=== PATIENT | female | born 1935 | race Caucasian/White ===

== ENCOUNTER → 2021-10-27 | Outpatient (CLI) | payer MEDICARE | END | disposition home or self-care (01) | LOC: LABWHC1 11:32 | PROVIDERS: ATTEND Orthopaedic Surgery | DX: Z01.812 Encounter for preprocedural laboratory examination (principal); M16.12 Unilateral primary osteoarthritis, left hip; Z22.322 Carrier or suspected carrier of Methicillin resistant Staphylococcus aureus | CPT/HCPCS: 87070 ==

== ENCOUNTER 2021-11-06 11:12 | Observation (INO) | payer MEDICARE ==
[2021-11-02 10:50] VITALS: BMI 25.4
--- NOTE | 2021-11-05 10:43 | HP ---
HISTORY AND PHYSICAL DATE OF SURGERY: 11/06/2021 Fariba Rivas is an 86-year-old patient seen with symptomatic left hip osteoarthritis. We discussed options for treatment. The patient elected to proceed with direct anterior left total hip arthroplasty. Consent regarding the procedure was obtained. Medical clearance was provided by Dr. Orantes. PAST MEDICAL HISTORY: Gastroesophageal reflux disease, hypertension. PAST SURGICAL HISTORY: Uterine surgery. DAILY MEDICATIONS: Gabapentin, lisinopril, omeprazole, rosuvastatin, vitamins. ALLERGIES: PENICILLIN, ADVAIR DISKUS, VIBRAMYCIN. SOCIAL HISTORY: She denies tobacco use. PHYSICAL EVALUATION OF LEFT HIP: She has very limited range of motion with severe pain and diffuse tenderness about the hip girdle. Impingement sign is positive. Straight-leg raise is negative. Her distal neurovascular exam is intact. Radiographs of the left hip revealed severe osteoarthritic changes. IMPRESSION: 1. Left hip osteoarthritis. 2. Hypertension. 3. Hyperlipidemia. PLAN: Direct anterior left total hip arthroplasty. MMODL / IJN: [id number] /
[~2021-11-06 11:12] MED LIST: ACETAMINOPHEN TAB 500 MG TAB PO PRN; MELOXICAM 7.5 MG TAB PO PRN; TRANEXAMIC ACID IN NACL,ISO-OS 1,000 MG in SALINE 1 100ML.BAG IVPB PRN
[2021-11-06] MEDS ORDERED: LIDOCAINE 1% (10MG/ML) FOR IV START INTRADERMA PRN (11:35)
[2021-11-06] MEDS ORDERED: ONDANSETRON 4 MG/2 ML VIAL IVP ONE (11:35)
[2021-11-06] MEDS ORDERED: MIDAZOLAM 2 MG/2 ML VIAL IV PRN (11:35)
[2021-11-06] MEDS: LACTATED RINGERS 1,000 ML IV SCH (11:46)
[2021-11-06] MEDS ORDERED: DEXAMETHASONE SOD PHOSPHATE 4 MG/ML 1 ML VIAL IVP ONE (12:37)
[2021-11-06] MEDS ORDERED: PROPOFOL 10 MG/ML 20 ML VIAL IV ONE (12:39)
[2021-11-06] MEDS ORDERED: TRANEXAMIC ACID IN NACL,ISO-OS 1,000 MG/100 ML BAG ONE (12:39)
[2021-11-06] MEDS ORDERED: fentaNYL (PF) 50 MCG/ML 2 ML AMP ONE (12:39)
[2021-11-06] MEDS ORDERED: ceFAZolin 1,000 MG in SODIUM CHLORIDE 0.9% 1,000 ML IRRIGATION ONE (12:39)
[2021-11-06] MEDS ORDERED: MIDAZOLAM 2 MG/2 ML VIAL ONE (12:39)
[2021-11-06] MEDS ORDERED: PHENYLEPHRINE-0.9% NACL SYG 1,000 MCG/10 ML SYRINGE ONE (12:39)
[2021-11-06] MEDS ORDERED: ePHEDrine 50 MG/ML 1 ML VIAL ONE (12:39)
--- NOTE | 2021-11-06 14:19 | XR ---
EXAMINATION TYPE: XR Hip Limited LT DATE OF EXAM: 11/06/2021 COMPARISON: NONE HISTORY: Postop TECHNIQUE: One view submitted. FINDINGS: There is postsurgical change in near anatomic alignment. There is soft tissue edema and emphysema. IMPRESSION: 1. Postoperative change. Appears in near-anatomic alignment.
--- NOTE | 2021-11-06 14:23 | FL ---
EXAMINATION TYPE: FL guidance operating room DATE OF EXAM: 11/06/2021 HISTORY: Fluoroscopy time 14 seconds of fluoroscopy provided. IMPRESSION: 1. Fluoroscopy time.
[2021-11-06] MEDS ORDERED: NALOXONE 0.4 MG/ML 1 ML VIAL IV PRN (14:24)
[2021-11-06] MEDS ORDERED: HYDROcodone/APAP 5-325MG 1 EACH TAB PO PRN (14:24)
[2021-11-06] MEDS ORDERED: ONDANSETRON 4 MG/2 ML VIAL IVP PRN (14:24)
[2021-11-06] MEDS ORDERED: HYDROmorphone 0.5 MG/0.5 ML SYRINGE IVP PRN ×3 (14:24)
--- NOTE | 2021-11-06 14:24 | P.OP ---
Date of Procedure: 11/06/21 Preoperative Diagnosis: Left hip osteoarthritis Postoperative Diagnosis: Left hip osteoarthritis Procedure(s) Performed: Direct anterior left total hip arthroplasty Implants: 1. Depuy Corail 125 standard collar size 13 press-fit femoral stem 2. Depuy pinnacle 58 mm multilevel press-fit acetabular shell 3. Depuy pinnacle neutral polyethylene acetabular liner 38 mm ID 58 mm OD 4. Biolox delta ceramic femoral head +1.5 36 mm Anesthesia: spinal Surgeon: Kerwin Hightower Heat Treat Operator #1: Shaun Jain Estimated Blood Loss (ml): 85 Pathology: other (Femoral head) Condition: stable Disposition: PACU Indications for Procedure: 86-year-old patient seen with symptomatic left hip osteoarthritis. After treatment options were discussed, she elected to proceed with direct anterior left total hip arthroplasty. Operative Findings: see description of procedure Description of Procedure: The patient was taken to the operative suite. Patient underwent a spinal anesthetic by the department of anesthesia. Patient was then transferred to the [facility] table. Patient was given preoperative IV antibiotics and TXA. Both lower extremities were placed in standard leg spars. The hip was then prepped and draped in the normal sterile orthopedic fashion. A standard anterior incision was made beginning 3 cm lateral and 1 cm distal to the ASIS extending 10 cm. Dissection was then carried down through the subcutaneous soft tissues down to the fascia overlying the tensor fascia emily. An incision was now made through the fascia. Careful dissection was taken down exposing the tensor fascia emily muscle. A Cobra retractor was now placed along the medial femoral neck and a second one along the lateral femoral neck. The venous circumflex vessels were now identified, cauterized and clipped. We identified the anterior hip capsule. An incision was made through the hip capsule along the lateral border. I performed a partial anterior capsulectomy. Retractors were now placed around the femoral neck itself. A femoral neck cut was now made with a sagittal saw. It was completed with an osteotome at the lateral neck area. The femoral head was now removed without difficulty. The extremity was now rotated to 60 of external rotation. It was locked in position. Residual labrum was now debrided out. Serial reaming was performed of the acetabulum while Aaron SULLIVAN assisted holding an anterior retractor for exposure. Once we reached the appropriate size and a trial was position and fit nicely. The appropriate size was now chosen opened and made available. It was introduced into the acetabulum without difficulty. The C-arm/fluoroscopy was now brought into the operative field. We made sure we had a true AP pelvic view. We now under direct C-arm/fluoroscopy introduced into the acetabular component with appropriate version and inclination. I held the cup in appropriate position well Aaron SULLIVAN used a mallet to seat the acetabular component. I noted the component now to be well seated and stable. Acetabular cup introduce her was removed. The C-arm was pulled back. An appropriate liner was introduced and clicked into position. It was felt to be stable. At this point retractors were removed. The extremity was now placed into 140 external rotation with no traction. The leg was now dropped to the ground and adducted. Appropriate retractors were now positioned along the proximal femur. We also placed our femoral look into position. Additional capsular releasing was performed to gain access to the proximal femur. We now used a box osteotome. A canal finder was now utilized. Serial broaching was now performed with the assistance of Aaron SULLIVAN tapping the broaches down with a mallet while held the broach in appropriate rotation and position. This was done until we reached the appropriate size with good overall rotational stability. Appropriate calcar planing was performed. A trial head/neck was placed into position. The hip was now reduced. The C- arm/fluoroscopy was brought back into the operative field. I obtained AP pelvis demonstrating adequate leg length alignment. The trial components appeared appropriately sized and positioned. The C-arm/fluoroscopy was pulled back. Retractors were repositioned and the hip was dislocated. The leg was again taken down to the ground and adducted. Appropriate retractors were repositioned as well as the femoral hook. All trial components were removed. The femoral implant was opened along with the femoral head. The femoral implant was introduced on the appropriate handle into our pre-broached area. I held the component position well Aaron SULLIVAN used a mallet to seat the femoral component. The femoral component was now noted to be well seated and stable.. The femoral head was introduced with good positioning and fixation noted. Retractors were now removed. The hip was now reduced. There appeared be good positioning of the hip confirmed on intraoperative fluoroscopy. Spot films were obtained to document this. A second gram of TXA was given. The deep and superficial soft tissues were infiltrated with local analgesic. Bipolar cautery had been utilized intermittently through the procedure for hemostasis. The wound was irrigated copiously with pulse lavage mechanical irrigation. The fascia was repaired with Vicryl suture. The subcutaneous soft tissues were repaired in layers with Vicryl suture. The skin was approximated with pernio/Dermabond. Sterile dressings were applied. Patient was then awakened, transferred to a bed and taken to recovery in stable condition. Aaron SULLIVAN assisted with the complex procedure.
[2021-11-06] MEDS ORDERED: LACTATED RINGERS 1,000 ML IV ONE (14:37)
[2021-11-06] MEDS ORDERED: MEPERIDINE 50 MG/ML SYRINGE IVP ONE ×4 (15:10→15:41)
[2021-11-06] MEDS: HYDROmorphone 0.5 MG/0.5 ML SYRINGE IVP PRN ×2 (16:09→16:21)
[2021-11-06] MEDS: SENNOSIDES-DOCUSATE SODIUM 1 EACH TAB PO SCH (22:00)
[2021-11-06] MEDS: HYDROcodone/APAP 5-325MG 1 EACH TAB PO PRN (22:00)
--- NOTE | 2021-11-06 23:32 | P.CONS ---
History of Present Illness - Reason for Consult Consult date: 11/06/21 - History of Present Illness The patient is an 86-year-old female with a PMH of hypertension and hyperlipidemia who was admitted to the hospital for an elective left hip arthroplasty. The patient was seen postoperatively on the surgical unit. There were no reported immediate postoperative complications. The patient reported excellent control of her pain at the time of interview, rated at a 0 out of 10 at rest. Denied experiencing chest discomfort, shortness of breath, fever, chills, cough, nausea, vomiting, abdominal pain, diarrhea. She reports compliance with all her medications at home. She was in good spirits and was eager to get up out of bed and move on to therapy. Review of systems: Pertinent positives and negatives as discussed in HPI, a complete review of systems was performed and all other systems are negative. Physical examination: General: non toxic, no distress, appears at stated age, normal weight Derm: no unusual rashes/lesions no unusual ecchymoses, warm, dry Head: atraumatic, normocephalic, symmetric Eyes: EOMI, no lid lag, anicteric sclera, pupils equal round reactive to light ENT: Nose and ears atraumatic, no thrush, no pharyngeal erythema Neck: No thyromegaly, no cervical lymphadenopathy, trachea midline, supple Mouth: no lip lesion, mucus membranes moist Cardiovascular: S1S2 reg, no murmur, positive posterior tibial pulse bilateral, no edema, capillary refill less than 2 seconds Lungs: CTA bilateral, no rhonchi, no rales , no accessory muscle use Abdominal: soft, nontender to palpation, no guarding, no appreciable organomegaly, normal bowel sounds Ext: no gross muscle atrophy, muscle strength 5 out of 5 in all extremities grossly except left lower extremity postsurgical, left anterior hip dressing clean and dry without surrounding skin abnormalities no contractures, Neuro: CN II-XI grossly intact, light touch intact all 4 extremities, finger to nose within normal limits, Psych: Alert, oriented, appropriate affect Assessment/plan Chronic conditions: Hypertension, hyperlipidemia -Continue with home meds Status post left total hip arthroplasty -Defer management including pain control and DVT prophylaxis to the primary surgical service We appreciate this opportunity to be involved in this patient's care. We will follow the patient with you. For any further questions, please not hesitate to contact the [facility] emergency department inpatient team. Past Medical History Past Medical History: Asthma, Cancer, GERD/Reflux, Osteoarthritis (OA) Additional Past Medical History / Comment(s): SOB with excertion, skin cancer upper lip and check History of Any Multi-Drug Resistant Organisms: None Reported Additional Past Surgical History / Comment(s): surgery for prolapsed uterus Past Anesthesia/Blood Transfusion Reactions: No Reported Reaction Smoking Status: Never smoker - Past Family History Son(s) Family Medical History: Cancer Medications and Allergies Home Medications Medication Instructions Recorded Confirmed Type Acetaminophen Tab [Tylenol] 650 mg PO Q6H PRN 11/02/21 11/02/21 History Biotene Mouth Wash 5 ml PO DAILY PRN 11/02/21 11/06/21 History Calcium Carbonate [Tums] 500 mg PO Q6HR PRN 11/02/21 11/06/21 History Cholecalciferol [Vitamin D3 (25 50 mcg PO DAILY 11/02/21 11/06/21 History Mcg = 1000 Iu)] Cyanocobalamin (Vitamin B-12) 1,000 mcg PO DAILY 11/02/21 11/06/21 History [Vitamin B-12] DULoxetine HCL [Cymbalta] 60 mg PO DAILY 11/02/21 11/06/21 History Diltiazem HCl [Diltiazem HCl 24Hr 240 mg PO DAILY 11/02/21 11/06/21 History ER] Estradiol Cream [Estrace Cream 1 gm VAGINAL WESA 11/02/21 11/06/21 History 0.01%] Gabapentin [Neurontin] 100 mg PO HS 11/02/21 11/06/21 History HYDROcodone/APAP 5-325MG [[place] 1 tab PO Q6HR PRN 11/02/21 11/06/21 History 5-325] Melatonin 3 mg PO HS 11/02/21 11/06/21 History Omeprazole [PriLOSEC] 20 mg PO HS 11/02/21 11/06/21 History Rosuvastatin Calcium [Crestor] 5 mg PO HS 11/02/21 11/06/21 History Vit C/E/Zn/Coppr/Lutein/Zeaxan 1 each PO DAILY 11/02/21 11/06/21 History [Preservision Areds 2 Softgel] lisinopriL 40 mg PO DAILY 11/02/21 11/06/21 History Allergies Allergy/AdvReac Type Severity Reaction Status Date / Time doxycycline [From Vibramycin] Allergy Unknown Verified 11/06/21 11:37 fluticasone Allergy Unknown Verified 11/06/21 11:37 Penicillins Allergy Unknown Verified 11/06/21 11:37 salmeterol Allergy Unknown Verified 11/06/21 11:37 [From Advair Diskus] Physical Exam Vitals: Vital Signs Temp Pulse Resp BP Pulse Ox 11/06/21 20:00 98.4 F 76 18 102/62 94 L 11/06/21 18:45 80 16 119/56 93 L 11/06/21 17:40 73 16 127/69 93 L 11/06/21 17:11 76 16 126/82 94 L 11/06/21 16:40 72 12 135/64 95 11/06/21 16:25 82 16 141/65 97 11/06/21 16:10 91 18 158/74 98 11/06/21 15:55 72 14 153/68 99 11/06/21 15:40 73 14 156/66 98 11/06/21 15:24 72 16 154/59 99 11/06/21 15:09 86 18 158/70 95 11/06/21 14:54 77 14 143/55 93 L 11/06/21 14:39 97 F L 68 16 155/66 95 11/06/21 12:05 177/83 11/06/21 12:01 98.6 F 88 18 189/77 94 L Intake and Output 11/06/21 11/06/21 11/06/21 06:59 14:59 22:59 Intake Total 1051 800 Output Total 85 Balance 966 800 Intake: IV 1051 800 Output: Estimated Blood Loss 85 Other: Weight 66.6 kg
[2021-11-07] MEDS: SODIUM CHLORIDE 0.9% 1,000 ML IV SCH ×2 (00:52→11:48)
[2021-11-07] MEDS ORDERED: HYDROcodone/APAP 5-325MG 1 EACH TAB PO PRN (03:51)
[2021-11-07] MEDS: HYDROcodone/APAP 5-325MG 1 EACH TAB PO PRN ×2 (05:32→14:12)
[2021-11-07 09:09] LABS: African American GFR (CKD) 59 (>60 ml/min/1.73 sqM); Anion Gap 12 mmol/L; Blood Urea Nitrogen 28 mg/dL (7-17); Calcium 8.4 mg/dL (8.4-10.2); Carbon Dioxide 20 mmol/L (22-30); Chloride 105 mmol/L (98-107); Glucose 148 mg/dL (74-99); Non-African American GFR(CKD) 51 (>60 ml/min/1.73 sqM); Potassium 4.4 mmol/L (3.5-5.1); Sodium 137 mmol/L (137-145)
[2021-11-07 09:11] LABS: Basophils # (A) 0.01 X 10*3/uL (0.00-0.10); Basophils % (A) 0.1 %; Eosinophils # (A) 0 X 10*3/uL (0.04-0.35); Eosinophils % (A) 0 %; HGB 9.3 g/dL (12.0-15.0); Immature Grans, Automated 0.4 %; Lymphocytes # (A) 0.64 X 10*3/uL (0.90-5.00); Lymphocytes % (A) 6.1 %; MCH 30.6 pg (27.0-32.0); MCV 98.7 fL (80.0-97.0); Mean Platelet Volume 11.1 fL (9.5-12.2); Monocytes # (A) 1.01 X 10*3/uL (0.20-1.00); Monocytes % (A) 9.7 %; NRBC Per 100 WBC 0 /100 WBCS (0.0-0.0); Neutrophils # (A) 8.75 X 10*3/uL (1.80-7.70); Neutrophils % (A) 83.7 %; Platelet Count 179 X 10*3/uL (140-440); RBC 3.04 X 10*6/uL (4.10-5.20); RDW 12.6 % (11.5-14.5); WBC 10.45 X 10*3/uL (4.50-10.00)
[2021-11-07] MEDS: ENOXAPARIN 40 MG/0.4 ML SYRINGE SQ SCH (10:35)
[2021-11-07] MEDS: DULoxetine HCL 60 MG CAPSULE.DR PO SCH (10:35)
[2021-11-07] MEDS: lisinopriL 20 MG TAB PO SCH (10:35)
[2021-11-07] MEDS: FAMOTIDINE 20 MG TAB PO SCH (10:35)
[2021-11-07] MEDS: DILTIAZEM CD 240 MG CAP.ER.24H PO SCH (10:45)
--- NOTE | 2021-11-07 10:45 | P.PN ---
Subjective Progress Note Date: 11/07/21 Principal diagnosis: Status post direct anterior left total hip arthroplasty Patient evaluated at bedside, she is resting comfortably. She has ambulated well with physical therapy. She's having some generalized discomfort in the left lower extremity. She currently denies any headaches, lightheadedness, chest pain or shortness of breath. Objective - Vital Signs Vital signs: Vital Signs Temp 98.7 F 11/07/21 07:55 Pulse 82 11/07/21 07:55 Resp 20 11/07/21 07:55 BP 126/68 11/07/21 07:55 Pulse Ox 94 L 11/07/21 07:55 Intake & Output 11/06/21 11/07/21 11/07/21 18:59 06:59 18:59 Intake Total 1851 Output Total 85 Balance 1766 Weight 66.6 kg 66.6 kg Intake: IV 1851 Output: Estimated Blood Loss 85 Other: # Voids 1 - Exam Left lower extremity: Incision is clean, dry, and intact. The foam dressing is in good condition. There is minimal soft tissue swelling and ecchymosis surrounding the medial and lateral aspects of the incision. Calf is soft, no tenderness with palpation. Plantar flexion, dorsiflexion, EHL, FHL are intact. Sensory exam to light touch throughout the extremity is intact, dorsal pedis pulses 2+. - Labs CBC & Chem 7: 11/07/21 06:07 11/07/21 06:07 Labs: Abnormal Lab Results - Last 24 Hours (Table) 11/07/21 11/07/21 Range/Units 06:07 06:07 WBC 10.45 H (4.50-10.00) X 10*3/uL RBC 3.04 L (4.10-5.20) X 10*6/uL Hgb 9.3 L (12.0-15.0) g/dL Hct 30.0 L (37.2-46.3) % MCV 98.7 H (80.0-97.0) fL MCHC 31.0 L (32.0-37.0) g/dL Neutrophils # 8.75 H (1.80-7.70) X 10*3/uL Lymphocytes # 0.64 L (0.90-5.00) X 10*3/uL Monocytes # 1.01 H (0.20-1.00) X 10*3/uL Eosinophils # 0 L (0.04-0.35) X 10*3/uL Carbon Dioxide 20 L (22-30) mmol/L BUN 28 H (7-17) mg/dL Glucose 148 H (74-99) mg/dL Assessment and Plan Assessment: Postoperartive day #1 s/p direct anterior left total hip replacement Plan: Pain control, plan for discharge on [place] 5 mg/325 mg DVT prophylaxis, aspirin 81 mg twice a day for a month Wound care structures were discussed, this includes showering and icing and elevating Patient lives at a F, plan for daily therapy Medical recommendations Discharge planning: Hopeful discharge today Time with Patient: Less than 30
[2021-11-07] MEDS: LACTATED RINGERS 1,000 ML IV SCH (11:52)
--- NOTE | 2021-11-07 14:41 | P.PN ---
Subjective Progress Note Date: 11/07/21 Principal diagnosis: HIP PAIN The patient is an 86-year-old female with a PMH of hypertension and hyperlipidemia who was admitted to the hospital for an elective left hip arthroplasty. Patient is currently postop day #1 from this procedure without any significant complications. She denies any nausea vomiting fever or chills Objective - Vital Signs Vital signs: Vital Signs Temp 98.7 F 11/07/21 07:55 Pulse 82 11/07/21 07:55 Resp 20 11/07/21 07:55 BP 126/68 11/07/21 07:55 Pulse Ox 94 L 11/07/21 07:55 Intake & Output 11/06/21 11/07/21 11/07/21 18:59 06:59 18:59 Intake Total 1851 Output Total 85 Balance 1766 Weight 66.6 kg 66.6 kg Intake: IV 1851 Output: Estimated Blood Loss 85 Other: Voiding Method Toilet # Voids 1 - Exam General: non toxic, no distress, appears at stated age, normal weight Derm: no unusual rashes/lesions no unusual ecchymoses, warm, dry Head: atraumatic, normocephalic, symmetric Eyes: EOMI, no lid lag, anicteric sclera, pupils equal round reactive to light ENT: Nose and ears atraumatic, no thrush, no pharyngeal erythema Neck: No thyromegaly, no cervical lymphadenopathy, trachea midline, supple Mouth: no lip lesion, mucus membranes moist Cardiovascular: S1S2 reg, no murmur, positive posterior tibial pulse bilateral, no edema, capillary refill less than 2 seconds Lungs: CTA bilateral, no rhonchi, no rales , no accessory muscle use Abdominal: soft, nontender to palpation, no guarding, no appreciable organomegaly, normal bowel sounds Ext: no gross muscle atrophy, muscle strength 5 out of 5 in all extremities grossly except left lower extremity postsurgical, left anterior hip dressing clean and dry without surrounding skin abnormalities no contractures, Neuro: CN II-XI grossly intact, light touch intact all 4 extremities, finger to nose within normal limits, Psych: Alert, oriented, appropriate affect - Labs CBC & Chem 7: 11/07/21 06:07 11/07/21 06:07 Labs: Abnormal Lab Results - Last 24 Hours (Table) 11/07/21 11/07/21 Range/Units 06:07 06:07 WBC 10.45 H (4.50-10.00) X 10*3/uL RBC 3.04 L (4.10-5.20) X 10*6/uL Hgb 9.3 L (12.0-15.0) g/dL Hct 30.0 L (37.2-46.3) % MCV 98.7 H (80.0-97.0) fL MCHC 31.0 L (32.0-37.0) g/dL Neutrophils # 8.75 H (1.80-7.70) X 10*3/uL Lymphocytes # 0.64 L (0.90-5.00) X 10*3/uL Monocytes # 1.01 H (0.20-1.00) X 10*3/uL Eosinophils # 0 L (0.04-0.35) X 10*3/uL Carbon Dioxide 20 L (22-30) mmol/L BUN 28 H (7-17) mg/dL Glucose 148 H (74-99) mg/dL Assessment and Plan Assessment: Hypertension Blood pressure is currently stable on current medications of diltiazem, lisinopril Dyslipidemia Continue with atorvastatin Left hip pain Patient is postop day #1 from a left hip arthroplasty procedure. Without any complications -Chek postop day #1 labs -Continue with pain control -Continue with DVT prophylaxis
[2021-11-07] MEDS: GABAPENTIN 100 MG CAP PO SCH (20:15)
[2021-11-07] MEDS: ATORVASTATIN 10 MG TAB PO SCH (20:16)
[2021-11-07] MEDS: SENNOSIDES-DOCUSATE SODIUM 1 EACH TAB PO SCH (20:16)
--- NOTE | 2021-11-07 20:51 | XR ---
EXAMINATION TYPE: XR Hip Complete LT DATE OF EXAM: 11/07/2021 COMPARISON: NONE HISTORY: Postop TECHNIQUE: 2 views FINDINGS: There is left hip prosthesis. Components appear in anatomic position. IMPRESSION: No complicating process seen.
[2021-11-08] MEDS: lisinopriL 20 MG TAB PO SCH (07:18)
[2021-11-08] MEDS: FAMOTIDINE 20 MG TAB PO SCH (07:18)
[2021-11-08] MEDS: ENOXAPARIN 40 MG/0.4 ML SYRINGE SQ SCH (07:19)
[2021-11-08] MEDS: DILTIAZEM CD 240 MG CAP.ER.24H PO SCH (07:19)
[2021-11-08] MEDS: DULoxetine HCL 60 MG CAPSULE.DR PO SCH (07:19)
[2021-11-08] MEDS: LACTATED RINGERS 1,000 ML IV SCH (07:24)
[2021-11-08] MEDS: HYDROcodone/APAP 5-325MG 1 EACH TAB PO PRN ×2 (07:30→15:06)
[2021-11-08] MEDS: SODIUM CHLORIDE 0.9% 1,000 ML IV SCH (07:31)
--- NOTE | 2021-11-08 09:02 | P.PN ---
Subjective Progress Note Date: 11/08/21 Principal diagnosis: Status post direct anterior left total hip arthroplasty Patient evaluated at bedside, she is resting comfortably. We are waiting on authorization for the patient to be discharged back to her extended care facility for rehab. She has continued to progress with physical therapy. I was able to observe the patient ambulating today in the halls, she definitely would benefit from rehab to improve her ADLs. She currently denies any headaches, lightheadedness, chest pain or shortness of breath. Objective - Vital Signs Vital signs: Vital Signs Temp 98.8 F 11/08/21 08:00 Pulse 75 11/08/21 08:00 Resp 18 11/08/21 08:25 BP 120/64 11/08/21 08:00 Pulse Ox 94 L 11/08/21 08:00 Intake & Output 11/07/21 11/08/21 11/08/21 18:59 06:59 18:59 Intake Total 1160 100 Balance 1160 100 Intake: Oral 1160 100 Other: Voiding Method Toilet Toilet # Voids 3 4 # Bowel Movements 1 1 - Exam Left lower extremity: Incision is clean, dry, and intact. The foam dressing is in good condition. There is minimal soft tissue swelling and ecchymosis surrounding the medial and lateral aspects of the incision. Calf is soft, no tenderness with palpation. Plantar flexion, dorsiflexion, EHL, FHL are intact. Sensory exam to light touch throughout the extremity is intact, dorsal pedis pulses 2+. - Labs CBC & Chem 7: 11/07/21 06:07 11/07/21 06:07 Labs: Abnormal Lab Results - Last 24 Hours (Table) 11/07/21 11/07/21 Range/Units 06:07 06:07 WBC 10.45 H (4.50-10.00) X 10*3/uL RBC 3.04 L (4.10-5.20) X 10*6/uL Hgb 9.3 L (12.0-15.0) g/dL Hct 30.0 L (37.2-46.3) % MCV 98.7 H (80.0-97.0) fL MCHC 31.0 L (32.0-37.0) g/dL Neutrophils # 8.75 H (1.80-7.70) X 10*3/uL Lymphocytes # 0.64 L (0.90-5.00) X 10*3/uL Monocytes # 1.01 H (0.20-1.00) X 10*3/uL Eosinophils # 0 L (0.04-0.35) X 10*3/uL Carbon Dioxide 20 L (22-30) mmol/L BUN 28 H (7-17) mg/dL Glucose 148 H (74-99) mg/dL Assessment and Plan Assessment: Postoperartive day #2 s/p direct anterior left total hip replacement Plan: Pain control, plan for discharge on [place] 5 mg/325 mg DVT prophylaxis, aspirin 81 mg twice a day for a month Wound care structures were discussed, this includes showering and icing and elevating Medical recommendations Discharge planning: Stable to discharge, awaiting authorization from rehab Time with Patient: Less than 30
--- NOTE | 2021-11-08 12:39 | P.PN ---
Subjective Progress Note Date: 11/08/21 Principal diagnosis: HIP PAIN The patient is an 86-year-old female with a PMH of hypertension and hyperlipidemia who was admitted to the hospital for an elective left hip arthroplasty. Patient is currently postop day #2 from this procedure without any significant complications. She denies any nausea vomiting fever or chills Patient is doing well with pain denies any new complaints at this time. She is awaiting insurance authorization for rehab. She is stable for discharge Objective - Vital Signs Vital signs: Vital Signs Temp 98.8 F 11/08/21 08:00 Pulse 75 11/08/21 08:00 Resp 18 11/08/21 08:25 BP 120/64 11/08/21 08:00 Pulse Ox 94 L 11/08/21 08:00 Intake & Output 11/07/21 11/08/21 11/08/21 18:59 06:59 18:59 Intake Total 1160 100 Balance 1160 100 Intake: Oral 1160 100 Other: Voiding Method Toilet Toilet # Voids 3 4 # Bowel Movements 1 1 - Exam General: non toxic, no distress, appears at stated age, normal weight Derm: no unusual rashes/lesions no unusual ecchymoses, warm, dry Head: atraumatic, normocephalic, symmetric Eyes: EOMI, no lid lag, anicteric sclera, pupils equal round reactive to light ENT: Nose and ears atraumatic, no thrush, no pharyngeal erythema Neck: No thyromegaly, no cervical lymphadenopathy, trachea midline, supple Mouth: no lip lesion, mucus membranes moist Cardiovascular: S1S2 reg, no murmur, positive posterior tibial pulse bilateral, no edema, capillary refill less than 2 seconds Lungs: CTA bilateral, no rhonchi, no rales , no accessory muscle use Abdominal: soft, nontender to palpation, no guarding, no appreciable organomegaly, normal bowel sounds Ext: no gross muscle atrophy, muscle strength 5 out of 5 in all extremities grossly except left lower extremity postsurgical, left anterior hip dressing clean and dry without surrounding skin abnormalities no contractures, Neuro: CN II-XI grossly intact, light touch intact all 4 extremities, finger to nose within normal limits, Psych: Alert, oriented, appropriate affect - Labs CBC & Chem 7: 11/07/21 06:07 11/07/21 06:07 Assessment and Plan Assessment: Hypertension Blood pressure is currently stable on current medications of diltiazem, lisinopril Dyslipidemia Continue with atorvastatin Left hip pain Patient is postop day #2 from a left hip arthroplasty procedure. Without any complications -Continue with pain control -Continue with DVT prophylaxis Disposition: Patient is awaiting insurance authorization for rehab. Patient is stable for discharge
--- NOTE | 2021-11-08 14:26 | P.DS ---
Providers Date of admission: 11/07/21 07:35 Expected date of discharge: 11/08/21 Attending physician: Kerwin Hightower Consults: 11/06/21 14:24 Consult Physician Routine Consulting Provider: Cory Floyd Consult Reason/Comments: Medical management Do you want consulting provider notified?: Yes Primary care physician: Stated None Hospital Course: Date of admission: 11/06/2021 Date of discharge: 11/08/2021 Admission diagnosis: Status post direct anterior left total hip arthroplasty Discharge diagnosis: Same Attending physician: Dr. Hightower Surgical procedures: Direct anterior left total hip arthroplasty Brief history: Patient is a 86-year-old female with a history of progressive primary left hip osteoarthritis. At this point patient has failed conservative treatment measures and has opted to proceed with a elective direct anterior left total hip arthroplasty. Hospital course: Details of patient's surgery can be found in operative report. Patient tolerated the procedure well and was subsequently transported to orthopedic floor. Patient's orthopeidc and medical care was provided daily. Patient had daily laboratory tests performed for evaluation of overall blood counts. Patient had daily physical therapy to include strengthening range of motion as well as education with walker ambulation. Patient was treated with Lovenox for their postoperative DVT prophylaxis during their inpatient stay. Patient was noted to have a relatively uneventful postoperative course. Patient reported satisfactory pain control with oral pain medications by postoperative day 0. Patient showed satisfactory progress with physical therapy. Patient moved steadily through the program and had no difficulty meeting the goals by postoperative day 1. Given patient's otherwise satisfactory course and having met physical therapy goals, plan is to discharge patient home on postoperative day 2. Discharge condition/disposition: Patient will be discharged home in stable condition. Discharge medications: Instructions are given on resumption of patient's normal daily medications per primary care recommendation, in addition patient will be prescribed [place] 5 mg/325 mg, Colace 100 mg, ferrous sulfate 325 mg, aspirin 81 mg. Discharge instructions: 1. Wound care and infection precautions, keep incision dry and covered while showering, no lotions, creams, moisturizers. No soaking, tubs, pools, hottubs. Do not scrub over the incision. 2. Weight-bear as tolerated with walker / cane until follow-up. 3. Ice and elevate when necessary. Do not exceed 20 minutes per hour with ice pack. 4. Utilize compression sleeve until seen at first follow up appointment. 5. Visiting nursing care. 6. Home physical therapy. 7. Pain meds and anticoagulants per prescription. 8. Pain medication has potential to cause constipation. Increase oral fluid and fiber intake. Contact primary care provider if you have not had a bowel movement within 48 hours after discharge 9. No anti-inflammatory medication until discussed at first post operative visit, this including Motrin, Aleve, Mobic, Diclofenac. 10. Follow up in office at 2 weeks postop with Aaron Jain PA-C/Ag Aguilar 11. Follow up with your primary care doctor 7-10 days after discharge. 12. Contact [facility] with any questions, . Procedures: Direct anterior left total hip arthroplasty Patient Condition at Discharge: Good Plan - Discharge Summary Discharge Rx Participant: No New Discharge Prescriptions: New Ferrous Sulfate [Iron (65 MG Elemental)] 325 mg PO BID #60 tab HYDROcodone/APAP 5-325MG [[place] 5-325] 1 tab PO Q6HR PRN #28 tab PRN Reason: Pain Aspirin [Adult Low Dose Aspirin EC] 81 mg PO BID #60 tab Docusate [Colace] 100 mg PO DAILY #30 capsule Gabapentin [Neurontin] 100 mg PO DAILY 3 Days #6 cap No Action Calcium Carbonate [Tums] 500 mg PO Q6HR PRN PRN Reason: Heartburn lisinopriL 40 mg PO DAILY Melatonin 3 mg PO HS Estradiol Cream [Estrace Cream 0.01%] 1 gm VAGINAL WESA Biotene Mouth Wash 5 ml PO DAILY PRN PRN Reason: Dry Mouth Acetaminophen Tab [Tylenol] 650 mg PO Q6H PRN PRN Reason: Pain HYDROcodone/APAP 5-325MG [[place] 5-325] 1 tab PO Q6HR PRN PRN Reason: Pain Cholecalciferol [Vitamin D3 (25 Mcg = 1000 Iu)] 50 mcg PO DAILY Rosuvastatin Calcium [Crestor] 5 mg PO HS Cyanocobalamin (Vitamin B-12) [Vitamin B-12] 1,000 mcg PO DAILY Vit C/E/Zn/Coppr/Lutein/Zeaxan [Preservision Areds 2 Softgel] 1 each PO DAILY Omeprazole [PriLOSEC] 20 mg PO HS Gabapentin [Neurontin] 100 mg PO HS DULoxetine HCL [Cymbalta] 60 mg PO DAILY Diltiazem HCl [Diltiazem HCl 24Hr ER] 240 mg PO DAILY Discharge Medication List Acetaminophen Tab [Tylenol] 650 mg PO Q6H PRN 11/02/21 [History] Biotene Mouth Wash 5 ml PO DAILY PRN 11/02/21 [History] Calcium Carbonate [Tums] 500 mg PO Q6HR PRN 11/02/21 [History] Cholecalciferol [Vitamin D3 (25 Mcg = 1000 Iu)] 50 mcg PO DAILY 11/02/21 [History] Cyanocobalamin (Vitamin B-12) [Vitamin B-12] 1,000 mcg PO DAILY 11/02/21 [History] DULoxetine HCL [Cymbalta] 60 mg PO DAILY 11/02/21 [History] Diltiazem HCl [Diltiazem HCl 24Hr ER] 240 mg PO DAILY 11/02/21 [History] Estradiol Cream [Estrace Cream 0.01%] 1 gm VAGINAL WESA 11/02/21 [History] Gabapentin [Neurontin] 100 mg PO HS 11/02/21 [History] HYDROcodone/APAP 5-325MG [[place] 5-325] 1 tab PO Q6HR PRN 11/02/21 [History] Melatonin 3 mg PO HS 11/02/21 [History] Omeprazole [PriLOSEC] 20 mg PO HS 11/02/21 [History] Rosuvastatin Calcium [Crestor] 5 mg PO HS 11/02/21 [History] Vit C/E/Zn/Coppr/Lutein/Zeaxan [Preservision Areds 2 Softgel] 1 each PO DAILY 11/02/21 [History] lisinopriL 40 mg PO DAILY 11/02/21 [History] Aspirin [Adult Low Dose Aspirin EC] 81 mg PO BID #60 tab 11/07/21 [Rx] Docusate [Colace] 100 mg PO DAILY #30 capsule 11/07/21 [Rx] Ferrous Sulfate [Iron (65 MG Elemental)] 325 mg PO BID #60 tab 11/07/21 [Rx] Gabapentin [Neurontin] 100 mg PO DAILY 3 Days #6 cap 11/07/21 [Rx] HYDROcodone/APAP 5-325MG [[place] 5-325] 1 tab PO Q6HR PRN #28 tab 11/07/21 [Rx] Follow up Appointment(s)/Referral(s): Shaun Jain PAC [PHYSICIAN [employer]] - 2 Weeks Activity/Diet/Wound Care/Special Instructions: Home Care: [facility] - [phone] - They will call patient to arrange home care visits. Orthopedic Discharge Instructions: 1. Wound care and infection precautions, keep incision dry and covered while showering, no lotions, creams, moisturizers. No soaking, pools, hot tubs. Do not scrub over incision. 2. Weight-bear as tolerated with walker / cane until follow-up. 3. Ice and elevate when necessary. Do not exceed 20 minutes per hour with ice pack. 4. Utilize compression sleeve until seen at first follow up appointment. 5. Pain meds and anticoagulants per prescription. 6. Pain medication has potential to cause constipation. Increase oral fluid and fiber intake. Contact primary care provider if you have not had a bowel movement within 48 hours after discharge. 7. No anti-inflammatory medication until discussed at first post operative visit, this including Motrin, Aleve, Mobic, Diclofenac. 8. Follow up in office at 2 weeks postop with Aaron Jain PA-C/Ag Dash PA-C 9. Follow up with your primary care doctor 7-10 days after discharge. 10. Contact [facility] with any questions, . Wound care instructions: 1. Okay to remove bandage on 11/13/2021 2. After removal of bandage, okay to shower directly over incision Discharge Disposition: HOME WITH HOME HEALTH SERVICES
[2021-11-08] MEDS: GABAPENTIN 100 MG CAP PO SCH (20:24)
[2021-11-08] MEDS: ATORVASTATIN 10 MG TAB PO SCH (20:24)
[2021-11-08] MEDS: SENNOSIDES-DOCUSATE SODIUM 1 EACH TAB PO SCH (20:24)
[2021-11-09] MEDS: SODIUM CHLORIDE 0.9% 1,000 ML IV SCH (02:17)
[2021-11-09] MEDS: HYDROcodone/APAP 5-325MG 1 EACH TAB PO PRN ×2 (02:19→07:19)
[2021-11-09] MEDS: lisinopriL 20 MG TAB PO SCH (07:15)
[2021-11-09] MEDS: FAMOTIDINE 20 MG TAB PO SCH (07:16)
[2021-11-09] MEDS: DILTIAZEM CD 240 MG CAP.ER.24H PO SCH (07:16)
[2021-11-09] MEDS: DULoxetine HCL 60 MG CAPSULE.DR PO SCH (07:16)
[2021-11-09] MEDS: ENOXAPARIN 40 MG/0.4 ML SYRINGE SQ SCH (07:16)
[2021-11-09] MEDS: LACTATED RINGERS 1,000 ML IV SCH (07:16)
[2021-11-09 07:44] VITALS: BP 112/73; PULSE 74; TEMP 97.8
[2021-11-09 09:02] VITALS: RESP 20
[2021-11-09 09:24] LABS: Basophils # (A) 0.1 k/uL (0-0.2); Basophils % (A) 1 %; Eosinophils # (A) 0.1 k/uL (0-0.7); Eosinophils % (A) 2 %; HCT 30.2 % (34.0-46.0); HGB 9.6 gm/dL (11.4-16.0); Lymphocytes # (A) 1.3 k/uL (1.0-4.8); Lymphocytes % (A) 19 %; MCH 32.2 pg (25.0-35.0); MCHC 31.8 g/dL (31.0-37.0); MCV 101.5 fL (80.0-100.0); Mean Platelet Volume 8.6; Monocytes # (A) 0.5 k/uL (0-1.0); Monocytes % (A) 7 %; Neutrophils % (A) 70 %; Platelet Count 176 k/uL (150-450); RBC 2.97 m/uL (3.80-5.40); RDW 12.5 % (11.5-15.5); WBC 7.2 k/uL (3.8-10.6)
== END 2021-11-09 11:00 | disposition home health service (06) ==
LOC: OR 11:12 → 4SSUR 14:11 → OR 11-07 07:35
PROVIDERS: ADMIT Orthopaedic Surgery; ATTEND Orthopaedic Surgery
DX: M16.12 Unilateral primary osteoarthritis, left hip (principal); K21.9 Gastro-esophageal reflux disease without esophagitis; I10 Essential (primary) hypertension; E78.5 Hyperlipidemia, unspecified; Z98.890 Other specified postprocedural states; Z79.899 Other long term (current) drug therapy; Z88.0 Allergy status to penicillin; Z88.8 Allergy status to other drugs, medicaments and biological substances
CPT/HCPCS: 97116; 97161; 97535 ×2; 97165; 86900; 86901; 80048; 85025 ×2; 86850; 88300; 73501; 73502; 27130; G0378 ×3; C1776; J2250; J1100; J2175; J0690 ×3; J2405; J1650 ×3; J3010; J2370; J2704; J1170 ×2

== ENCOUNTER → 2022-04-23 | Outpatient (CLI) | payer MEDICARE | END | disposition home or self-care (01) | LOC: LABPAT 13:27 | PROVIDERS: ATTEND Orthopaedic Surgery | DX: Z01.812 Encounter for preprocedural laboratory examination (principal); M16.11 Unilateral primary osteoarthritis, right hip; Z22.322 Carrier or suspected carrier of Methicillin resistant Staphylococcus aureus | CPT/HCPCS: 87070 ==

== ENCOUNTER 2022-04-30 10:13 | Observation (INO) | payer MEDICARE ==
[2022-04-27 13:00] VITALS: BMI 24.1
--- NOTE | 2022-04-29 23:48 | HP ---
HISTORY AND PHYSICAL DATE OF SURGERY: Surgery is scheduled for 04/30/2022. HISTORY OF PRESENT ILLNESS: Fariba Rivas is an 87-year-old patient seen with symptomatic right hip osteoarthritis. We discussed options for treatment. She elected to proceed with direct anterior right total hip arthroplasty. Consent was obtained. Medical clearance was provided by Dr. Orantes. PAST MEDICAL HISTORY: Hypertension, gastroesophageal reflux disease, asthma. PAST SURGICAL HISTORY: Left total hip arthroplasty, uterine surgery. DAILY MEDICATIONS: 1. Lisinopril. 2. Omeprazole. 3. Rosuvastatin. 4. Vitamins. ALLERGIES: Fluconazole, penicillin, Advair, Vibramycin. SOCIAL HISTORY: She denies tobacco use. PHYSICAL EVALUATION OF RIGHT HIP: She has diffuse tenderness about the hip girdle. Positive hip impingement sign. Straight-leg raise negative. Her distal neurovascular exam is intact. RADIOGRAPHS: Radiographs of the right hip reveal severe osteoarthritic changes. IMPRESSION: 1. Right hip osteoarthritis. 2. Hypertension. 3. Hyperlipidemia. 4. Gastroesophageal reflux disease. PLAN: Direct anterior right total hip arthroplasty. MMODL / IJN: [id number] /
[2022-04-30] MEDS ORDERED: LIDOCAINE 1% (10MG/ML) FOR IV START INTRADERMA PRN (10:22)
[2022-04-30] MEDS ORDERED: MIDAZOLAM 2 MG/2 ML VIAL IV PRN (10:22)
[2022-04-30] MEDS ORDERED: DEXAMETHASONE SOD PHOSPHATE 4 MG/ML 1 ML VIAL IV ONE (10:22)
[2022-04-30] MEDS ORDERED: ONDANSETRON 4 MG/2 ML VIAL IVP ONE ×2 (10:22→15:43)
[2022-04-30] MEDS: LACTATED RINGERS 1,000 ML IV SCH (10:24)
[2022-04-30] MEDS ORDERED: MIDAZOLAM 2 MG/2 ML VIAL IVP ONE ×2 (11:06→11:08)
--- NOTE | 2022-04-30 11:44 | P.ANPRN ---
Procedure Note - Anesthesia - Nerve Block Performed Right Erector Spinae Single Time Out Performed: Yes (1105) Date of Procedure: 04/30/22 Procedure Start Time: 11:05 Procedure Stop Time: 11:12 Location of Patient: PreOp Indication: Acute Post-Operative Pain, Requested by Surgeon Sedation Type: Sedate with meaningful contact maintained Preparation: Sterile Prep, Sterile Dressing Position: Sitting Catheter: None Needle Types: Pajunk Needle Gauge: 21 Ultrasound used to visualize needle placement: Yes Ultrasound used to observe medication spread: Yes Injectate: 0.5% Ropivacaine (see comment for volume) Blood Aspirated: No Pain Paresthesia on Injection Noted: No Resistance on Injection: Normal Image Stored and Saved: Yes Events: Uneventful and Well Tolerated (25 mL of block solution containing 15 mL of 0.5% ropivacaine, 9 mL of preservative free 0.9% NaCl mixed with 4 MG of dexamethasone)
[2022-04-30] MEDS ORDERED: SODIUM CHLORIDE 0.9% (PF) 10 ML VIAL ONE (12:29)
[2022-04-30] MEDS ORDERED: DEXAMETHASONE SOD PHOSPHATE 4 MG/ML 1 ML VIAL ONE (12:29)
[2022-04-30] MEDS ORDERED: ROPIVACAINE 5 MG/ML 30 ML VIAL ONE (12:29)
[2022-04-30] MEDS ORDERED: fentaNYL (PF) 50 MCG/ML 2 ML AMP ONE (12:29)
[2022-04-30] MEDS ORDERED: TRANEXAMIC ACID IN NACL,ISO-OS 1,000 MG/100 ML BAG ONE (12:29)
[2022-04-30] MEDS ORDERED: MIDAZOLAM 2 MG/2 ML VIAL ONE (12:29)
--- NOTE | 2022-04-30 14:06 | XR ---
Fluoroscopy HISTORY: Hip osteoarthritis 13 seconds fluoroscopy time supplied to the referring clinician. 2 intraoperative C-arm images docum ent the procedure. See dictated report from orthopedic surgery.
[2022-04-30] MEDS ORDERED: HYDROcodone/APAP 5-325MG 1 EACH TAB PO PRN (14:11)
[2022-04-30] MEDS ORDERED: NALOXONE 0.4 MG/ML 1 ML VIAL IV PRN (14:11)
[2022-04-30] MEDS ORDERED: ONDANSETRON 4 MG/2 ML VIAL IVP PRN (14:11)
[2022-04-30] MEDS ORDERED: HYDROmorphone 0.5 MG/0.5 ML SYRINGE IVP PRN ×3 (14:11)
--- NOTE | 2022-04-30 14:11 | P.OP ---
Date of Procedure: 04/30/22 Preoperative Diagnosis: Right hip osteoarthritis Postoperative Diagnosis: Right hip osteoarthritis Procedure(s) Performed: Direct anterior right total hip arthroplasty Implants: 1. Depuy [place]ail 125 standard collar size 14 press-fit femoral stem 2. Depuy Radom 54 mm press-fit acetabular shell 3. Depuy Radom neutral polyethylene acetabular liner 36 mm ID 54 mm OD 4. Biolox delta ceramic femoral head +1.5 36 mm Anesthesia: regional (erector spinae block), spinal Surgeon: Kerwin Hightower Ore Crushing Dust Collector #1: Shaun Jain Estimated Blood Loss (ml): 275 Pathology: other (Femoral head) Condition: stable Disposition: PACU Indications for Procedure: 87-year-old patient seen with symptomatic right hip osteoarthritis. After treatment options were discussed, she elected to proceed with direct anterior right total hip arthroplasty. Operative Findings: See description of procedure Description of Procedure: The patient was taken to the operative suite after having an erector spinae block performed by the department of anesthesia.. Patient underwent a spinal anesthetic by the department of anesthesia. Patient was then transferred to the [place] table. Patient was given preoperative IV antibiotics and TXA. Both lower extremities were placed in standard leg spars. The hip was then prepped and draped in the normal sterile orthopedic fashion. A standard anterior incision was made beginning 3 cm lateral and 1 cm distal to the ASIS extending 10 cm. Dissection was then carried down through the subcutaneous soft tissues down to the fascia overlying the tensor fascia emily. An incision was now made through the fascia. Careful dissection was taken down exposing the tensor fascia emily muscle. A Cobra retractor was now placed along the medial femoral neck and a second one along the lateral femoral neck. The venous circumflex vessels were now identified, cauterized and clipped. We identified the anterior hip capsule. An incision was made through the hip capsule along the lateral border. I performed a partial anterior capsulectomy. Retractors were now placed around the femoral neck itself. A femoral neck cut was now made with a sagittal saw. It was completed with an osteotome at the lateral neck area. The femoral head was now removed without difficulty. The extremity was now rotated to 60 of external rotation. It was locked in position. Residual labrum was now debrided out. Serial reaming was performed of the acetabulum while Aaron SULLIVAN assisted holding an anterior retractor for exposure. Once we reached the appropriate size and a trial was position and fit nicely. The appropriate size was now chosen opened and made available. It was introduced into the acetabulum without difficulty. The C-arm/fluoroscopy was now brought into the operative field. We made sure we had a true AP pelvic view. We now under direct C- arm/fluoroscopy introduced into the acetabular component with appropriate version and inclination. I held the cup in appropriate position well Aaron SULLIVAN used a mallet to seat the acetabular component. I noted the component now to be well seated and stable. Acetabular cup introduce her was removed. The C-arm was pulled back. An appropriate liner was introduced and clicked into position. It was felt to be stable. At this point retractors were removed. The extremity was now placed into 140 external rotation with no traction. The leg was now dropped to the ground and adducted. Appropriate retractors were now positioned along the proximal femur. We also placed our femoral look into p osition. Additional capsular releasing was performed to gain access to the proximal femur. We now used a box osteotome. A canal finder was now utilized. Serial broaching was now performed with the assistance of Aaron SULLIVAN tapping the broaches down with a mallet while held the broach in appropriate rotation and position. This was done until we reached the appropriate size with good overall rotational stability. Appropriate calcar planing was performed. A trial head/neck was placed into position. The hip was now reduced. The C- arm/fluoroscopy was brought back into the operative field. I obtained an AP pelvis was demonstrated adequate leg length alignment. The trial components appeared adequately size and position.. The C-arm/fluoroscopy was pulled back. Retractors were repositioned and the hip was dislocated. The leg was again taken down to the ground and adducted. Appropriate retractors were repositioned as well as the femoral hook. All trial components were removed. The femoral implant was opened along with the femoral head. The femoral implant was introduced on the appropriate handle into our pre-broached area. I held the component position while Aaron SULLIVAN used a mallet to seat the femoral component. The femoral component was now noted to be well seated and stable.. The femoral head was introduced with good positioning and fixation noted. Retractors were now removed. The hip was now reduced. There appeared be good positioning of the hip confirmed on intraoperative fluoroscopy. Spot films were obtained to document this. A second gram of TXA was given. The deep and superficial soft tissues were infiltrated with local analgesic. Bipolar cautery had been utilized intermittently through the procedure for hemostasis. The wound was irrigated copiously with pulse lavage mechanical irrigation. The fascia was repaired with Vicryl suture. The subcutaneous soft tissues were repaired in layers with Vicryl suture. The skin was approximated with pernio/Dermabond. Sterile dressings were applied. Patient was then awakened, transferred to a bed and taken to recovery in stable condition. Aaron SULLIVAN assisted with the complex procedure.
[2022-04-30] MEDS: HYDROmorphone 0.5 MG/0.5 ML SYRINGE IVP PRN ×2 (15:03→15:41)
[2022-04-30] MEDS ORDERED: LACTATED RINGERS 1,000 ML IV ONE ×2 (15:40)
[2022-04-30] MEDS: HYDROcodone/APAP 5-325MG 1 EACH TAB PO PRN ×2 (16:33→21:59)
[2022-04-30] MEDS ORDERED: MELATONIN 3 MG TABLET PO SCH (21:00)
[2022-04-30] MEDS ORDERED: PANTOPRAZOLE 40 MG TABLET PO SCH (21:00)
[2022-04-30] MEDS ORDERED: ATORVASTATIN 10 MG TAB PO SCH (21:00)
[2022-04-30] MEDS ORDERED: DOCUSATE 100 MG CAP PO SCH (21:00)
[2022-04-30] MEDS ORDERED: GABAPENTIN 100 MG CAP PO SCH (21:00)
[2022-04-30] MEDS ORDERED: SENNOSIDES-DOCUSATE SODIUM 1 EACH TAB PO SCH (21:00)
[2022-04-30] MEDS: SODIUM CHLORIDE 0.9% 1,000 ML IV SCH (22:00)
[2022-04-30] MEDS: ASPIRIN 81 MG PO SCH (22:00)
[2022-05-01] MEDS: HYDROcodone/APAP 5-325MG 1 EACH TAB PO PRN (04:15)
--- NOTE | 2022-05-01 05:52 | CONS ---
CONSULTATION HISTORY OF PRESENT ILLNESS: Status post right hip replacement. Complaining of pain in the area of the surgery on the right side. Otherwise, she is having no chest pain, shortness of breath. No lightheadedness, syncope. PAST MEDICAL HISTORY: Hypertension, GERD, asthma, surgery. PAST SURGICAL HISTORY: Uterine surgery, total hip arthroscopy. MEDICATIONS: 1. Lisinopril. 2. Omeprazole. 3. Rosuvastatin. 4. Vitamins. 5. Diltiazem. ALLERGIES: Fluconazole, penicillin, Advair, Vibramycin. REVIEW OF SYSTEMS: A 14-point review of systems negative except for the pain over the hip. PHYSICAL EXAMINATION: CARDIOVASCULAR: S1, S2. LUNGS: Clear. PSYCH: Fair mood and affect. NEUROLOGIC: Alert and oriented x3. ABDOMEN: Soft, nontender. EXTREMITIES: Bandage of the right hip. NEUROLOGIC: Cranial nerves intact. ASSESSMENT: Status post right hip replacement, hypertension, dyslipidemia, gastroesophageal reflux disease. Home medications have been restarted. She is saturating 90% on room air, 100% on 2 L. Blood pressure is 138/65, temperature 98.1, pulse 78, respirations 16. Incentive spirometry will be done. Possibly updrafts to be done. Restart her home medications. Prognosis guarded. MMODL / IJN: [id number] /
[2022-05-01] MEDS: ASPIRIN 81 MG PO SCH (07:23)
[2022-05-01] MEDS: LACTATED RINGERS 1,000 ML IV SCH (07:25)
[2022-05-01] MEDS: SODIUM CHLORIDE 0.9% 1,000 ML IV SCH (07:25)
[2022-05-01 07:54] VITALS: BP 118/67; PULSE 81; RESP 17; TEMP 98.1
[2022-05-01] MEDS ORDERED: FAMOTIDINE 20 MG TAB PO SCH (09:00)
[2022-05-01] MEDS ORDERED: DILTIAZEM CD 240 MG CAP.ER.24H PO SCH (09:00)
[2022-05-01] MEDS ORDERED: VIT A,C & E-LUTEIN-MINERALS 1 EACH TAB PO SCH (09:00)
[2022-05-01] MEDS ORDERED: DULoxetine HCL 60 MG CAPSULE.DR PO SCH (09:00)
[2022-05-01] MEDS ORDERED: lisinopriL 20 MG TAB PO SCH (09:00)
[2022-05-01] MEDS ORDERED: ENOXAPARIN 40 MG/0.4 ML SYRINGE SQ SCH (09:00)
[2022-05-01 10:35] LABS: Basophils # (A) 0.01 X 10*3/uL (0.00-0.10); Basophils % (A) 0.1 %; Eosinophils # (A) 0 X 10*3/uL (0.04-0.35); Eosinophils % (A) 0 %; HCT 29.5 % (37.2-46.3); HGB 9.4 g/dL (12.0-15.0); Immature Grans, Automated 0.4 %; Lymphocytes # (A) 0.86 X 10*3/uL (0.90-5.00); Lymphocytes % (A) 9.1 %; MCH 30.7 pg (27.0-32.0); MCHC 31.9 g/dL (32.0-37.0); MCV 96.4 fL (80.0-97.0); Mean Platelet Volume 11.6 fL (9.5-12.2); Monocytes % (A) 9.5 %; NRBC Per 100 WBC 0 /100 WBCS (0.0-0.0); Neutrophils # (A) 7.68 X 10*3/uL (1.80-7.70); Neutrophils % (A) 80.9 %; Platelet Count 179 X 10*3/uL (140-440); RBC 3.06 X 10*6/uL (4.10-5.20); RDW 13.3 % (11.5-14.5); WBC 9.49 X 10*3/uL (4.50-10.00)
--- NOTE | 2022-05-01 12:20 | P.PN ---
Subjective Progress Note Date: 05/01/22 Principal diagnosis: Status post direct anterior right total hip arthroplasty patient evaluated at bedside, she is resting comfortably. She is ambulating well with therapy with minimal issues. She denies any acute pain in the extremity, medication seems to be working well. She denies headaches, lightheadedness, shortness of breath, nausea or vomiting. Objective - Vital Signs Vital signs: Vital Signs Temp 98.1 F 05/01/22 07:53 Pulse 81 05/01/22 07:53 Resp 17 05/01/22 07:53 BP 118/67 05/01/22 07:53 Pulse Ox 89 L 05/01/22 07:53 FiO2 Intake & Output 04/30/22 05/01/22 05/01/22 18:59 06:59 18:59 Intake Total 1250 460 Output Total 275 Balance 975 460 Weight 67.9 kg Intake: IV 1250 Intake, IV Titration 100 Amount ceFAZolin 2 gm In Sodium 100 Chloride 0.9% 50 ml @ 100 mls/hr IVPB Q8H CANDACE Rx#: [id number] Oral 360 Output: Estimated Blood Loss 275 Other: # Voids 2 - Exam Right lower extremity: Incision is clean, dry, and intact. The foam dressing is in good condition. There is minimal soft tissue swelling and ecchymosis surrounding the medial and lateral aspects of the incision. Calf is soft, no tenderness with palpation. Plantar flexion, dorsiflexion, EHL, FHL are intact. Sensory exam to light touch throughout the extremity is intact, dorsal pedis pulses 2+. - Labs CBC & Chem 7: 05/01/22 06:43 Labs: Abnormal Lab Results - Last 24 Hours (Table) 05/01/22 Range/Units 06:43 RBC 3.06 L (4.10-5.20) X 10*6/uL Hgb 9.4 L (12.0-15.0) g/dL Hct 29.5 L (37.2-46.3) % MCHC 31.9 L (32.0-37.0) g/dL Lymphocytes # 0.86 L (0.90-5.00) X 10*3/uL Eosinophils # 0 L (0.04-0.35) X 10*3/uL Assessment and Plan Assessment: Postoperative day #1 status post direct anterior right total hip arthroplasty Plan: Pain control, patient will resume [place] 5 mg/325 mg DVT prophylaxis, patient will resume aspirin 81 mg twice a day Wound care instructions discussed, this to include icing, showering and when to remove Home physical therapy after discharge Medical recommendations Discharge planning: Stable for discharge Time with Patient: Less than 30
--- NOTE | 2022-05-01 12:25 | P.DS ---
Providers Date of admission: 05/01/22 08:02 Expected date of discharge: 05/01/22 Attending physician: Kerwin Hightower Consults: 04/30/22 14:11 Consult Physician Routine Consulting Provider: Checo Ospina Reason/Comments: Medical management Do you want consulting provider notified?: Yes Primary care physician: Joey Orantes Hospital Course: Date of admission: 04/30/2022 Date of discharge: 05/01/2022 Admission diagnosis: Status post direct anterior right total hip arthroplasty Discharge diagnosis: Same Attending physician: Dr. Hightower Surgical procedures: Direct anterior right total hip arthroplasty Brief history: Patient is a 87-year-old female with a history of progressive primary right hip osteoarthritis. At this point patient has failed conservative treatment measures and has opted to proceed with a elective direct anterior right total hip arthroplasty. Hospital course: Details of patient's surgery can be found in operative report. Patient tolerated the procedure well and was subsequently transported to orthopedic floor. Patient's orthopeidc and medical care was provided daily. Patient had daily laboratory tests performed for evaluation of overall blood counts. Patient had daily physical therapy to include strengthening range of motion as well as education with walker ambulation. Patient was treated with Lovenox for their postoperative DVT prophylaxis during their inpatient stay. Patient was noted to have a relatively uneventful postoperative course. Patient reported satisfactory pain control with oral pain medications by postoperative day 0. Patient showed satisfactory progress with physical therapy. Patient moved steadily through the program and had no difficulty meeting the goals by postoperative day 1. Given patient's otherwise satisfactory course and having met physical therapy goals, plan is to discharge patient home on postoperative day 1. Discharge condition/disposition: Patient will be discharged home in stable condition. Discharge medications: Instructions are given on resumption of patient's normal daily medications per primary care recommendation, in addition patient will be prescribed [place] 5 mg/325 mg. Discharge instructions: 1. Wound care and infection precautions, keep incision dry and covered while showering, no lotions, creams, moisturizers. No soaking, tubs, pools, hottubs. Do not scrub over the incision. 2. Weight-bear as tolerated with walker / cane until follow-up. 3. Ice and elevate when necessary. Do not exceed 20 minutes per hour with ice pack. 4. Utilize compression sleeve until seen at first follow up appointment. 5. Visiting nursing care. 6. Home physical therapy. 7. Pain meds and anticoagulants per prescription. 8. Pain medication has potential to cause constipation. Increase oral fluid and fiber intake. Contact primary care provider if you have not had a bowel movement within 48 hours after discharge 9. No anti-inflammatory medication until discussed at first post operative visit, this including Motrin, Aleve, Mobic, Diclofenac. 10. Follow up in office at 2 weeks postop with Aaron Jain PA-C/Ag Aguilar 11. Follow up with your primary care doctor 7-10 days after discharge. 12. Contact [facility] with any questions, . Procedures: Direct anterior right total hip arthroplasty Patient Condition at Discharge: Good Plan - Discharge Summary Discharge Rx Participant: No New Discharge Prescriptions: No Action Calcium Carbonate [Tums] 500 mg PO Q6HR PRN PRN Reason: Heartburn lisinopriL 40 mg PO QAM Melatonin 6 mg PO HS Estradiol Cream [Estrace Cream 0.01%] 1 gm VAGINAL WESA Biotene Mouth Wash 5 ml PO DAILY PRN PRN Reason: Dry Mouth Aspirin [Adult Low Dose Aspirin EC] 81 mg PO BID Docusate [Colace] 100 mg PO HS Acetaminophen Tab [Tylenol] 650 mg PO Q6H PRN PRN Reason: Pain HYDROcodone/APAP 5-325MG [[place] 5-325] 1 tab PO Q6HR PRN PRN Reason: Pain Cholecalciferol [Vitamin D3 (25 Mcg = 1000 Iu)] 50 mcg PO DAILY Rosuvastatin Calcium [Crestor] 5 mg PO HS Cyanocobalamin (Vitamin B-12) [Vitamin B-12] 1,000 mcg PO DAILY Vit C/E/Zn/Coppr/Lutein/Zeaxan [Preservision Areds 2 Softgel] 1 each PO DAILY Omeprazole [PriLOSEC] 20 mg PO HS Gabapentin [Neurontin] 100 mg PO HS DULoxetine HCL [Cymbalta] 60 mg PO QAM dilTIAZem HCL [Diltiazem HCl 24Hr ER] 240 mg PO QAM Discharge Medication List Acetaminophen Tab [Tylenol] 650 mg PO Q6H PRN 11/02/21 [History] Biotene Mouth Wash 5 ml PO DAILY PRN 11/02/21 [History] Calcium Carbonate [Tums] 500 mg PO Q6HR PRN 11/02/21 [History] Cholecalciferol [Vitamin D3 (25 Mcg = 1000 Iu)] 50 mcg PO DAILY 11/02/21 [History] Cyanocobalamin (Vitamin B-12) [Vitamin B-12] 1,000 mcg PO DAILY 11/02/21 [History] DULoxetine HCL [Cymbalta] 60 mg PO QAM 11/02/21 [History] Estradiol Cream [Estrace Cream 0.01%] 1 gm VAGINAL WESA 11/02/21 [History] Gabapentin [Neurontin] 100 mg PO HS 11/02/21 [History] HYDROcodone/APAP 5-325MG [[place] 5-325] 1 tab PO Q6HR PRN 11/02/21 [History] Melatonin 6 mg PO HS 11/02/21 [History] Omeprazole [PriLOSEC] 20 mg PO HS 11/02/21 [History] Rosuvastatin Calcium [Crestor] 5 mg PO HS 11/02/21 [History] Vit C/E/Zn/Coppr/Lutein/Zeaxan [Preservision Areds 2 Softgel] 1 each PO DAILY 11/02/21 [History] dilTIAZem HCL [Diltiazem HCl 24Hr ER] 240 mg PO QAM 11/02/21 [History] lisinopriL 40 mg PO QAM 11/02/21 [History] Aspirin [Adult Low Dose Aspirin EC] 81 mg PO BID 04/27/22 [History] Docusate [Colace] 100 mg PO HS 04/27/22 [History] Follow up Appointment(s)/Referral(s): Joey Orantes DO [Primary Care Provider] - 1 Week Shaun Jain PAC [PHYSICIAN FEEDER WORKER POWER UNIT OPERATOR] - 05/16/22 2:40 pm Activity/Diet/Wound Care/Special Instructions: Orthopedic Discharge Instructions: 1. Wound care and infection precautions, keep incision dry and covered while showering, no lotions, creams, moisturizers. No soaking, pools, hot tubs. Do not scrub over incision. 2. Weight-bear as tolerated with walker / cane until follow-up. 3. Ice and elevate when necessary. Do not exceed 20 minutes per hour with ice pack. 4. Utilize compression sleeve until seen at first follow up appointment. 5. Pain meds and anticoagulants per prescription. 6. Pain medication has potential to cause constipation. Increase oral fluid and fiber intake. Contact primary care provider if you have not had a bowel movement within 48 hours after discharge. 7. No anti-inflammatory medication until discussed at first post operative visit, this including Motrin, Aleve, Mobic, Diclofenac. 8. Follow up in office at 2 weeks postop with Aaron Jain PA-C/Ag Dash PA-C 9. Follow up with your primary care doctor 7-10 days after discharge. 10. Contact [facility] with any questions, . Wound care instructions: 1. Ok to remove dressing as of 05/07/2022 2. Okay to shower directly incision after removal of dressing Discharge Disposition: HOME WITH HOME HEALTH SERVICES
== END 2022-05-01 15:01 | disposition home health service (06) ==
LOC: OR 10:13 → 4SSUR 14:27 → OR 05-01 08:02
PROVIDERS: ADMIT Orthopaedic Surgery; ATTEND Orthopaedic Surgery
DX: M16.11 Unilateral primary osteoarthritis, right hip (principal); G47.00 Insomnia, unspecified; F32.A Depression, unspecified; I10 Essential (primary) hypertension; K21.9 Gastro-esophageal reflux disease without esophagitis; E78.5 Hyperlipidemia, unspecified; R32 Unspecified urinary incontinence; J45.909 Unspecified asthma, uncomplicated; E53.8 Deficiency of other specified B group vitamins; E55.9 Vitamin D deficiency, unspecified; G89.29 Other chronic pain; R07.81 Pleurodynia; Z98.890 Other specified postprocedural states; Z97.2 Presence of dental prosthetic device (complete) (partial); Z96.642 Presence of left artificial hip joint; Z79.82 Long term (current) use of aspirin; Z79.891 Long term (current) use of opiate analgesic; Z79.899 Other long term (current) drug therapy; Z88.1 Allergy status to other antibiotic agents; Z88.0 Allergy status to penicillin; Z88.8 Allergy status to other drugs, medicaments and biological substances
CPT/HCPCS: 97161; 97165; 64999; 86900; 86901; 85025; 86850; 88300; 73501; 27130; G0378; C1776; J2250; J1100; J0690 ×2; J2405; J1650; J3010; J2795; J1170 ×2

== ENCOUNTER 2022-05-02 17:46 | Observation (INO) | payer MEDICARE ==
--- NOTE | 2022-05-02 20:47 | ED ---
Fall HPI - General Chief Complaint: Fall Stated Complaint: fall Time Seen by Provider: 05/02/22 20:20 Source: patient, family Mode of arrival: wheelchair - History of Present Illness Initial Comments: Patient is an 79-year-old female presenting with chief complaint of right hip pain. Patient had total hip replacement performed on 04/30. Today at home patient was using her walker when the walker was caught causing her to fall onto the hip. Patient was seen at her surgeon Dr. Hightower office today, they took an x-ray and reported there was no damage prosthesis. Patient has been unable to ambulate on her own since the fall secondary to pain. Patient lives at assisted living home, her daughter called the home today to see if she is able to have extra assistance with ambulation, she was told that they do not provide those services. Her daughter is concerned about pain management and ADLs. Patient denies hitting her head or any blood thinners. No chest pain, diffi culty breathing, neck pain, headache, vision or hearing changes, dizziness, abdominal pain, nausea, vomiting. - Related Data Home Medications Medication Instructions Recorded Confirmed Acetaminophen Tab [Tylenol] 650 mg PO Q6H PRN 11/02/21 04/30/22 Biotene Mouth Wash 5 ml PO DAILY PRN 11/02/21 04/30/22 Calcium Carbonate [Tums] 500 mg PO Q6HR PRN 11/02/21 04/30/22 Cholecalciferol [Vitamin D3 (25 50 mcg PO DAILY 11/02/21 04/30/22 Mcg = 1000 Iu)] Cyanocobalamin (Vitamin B-12) 1,000 mcg PO DAILY 11/02/21 04/30/22 [Vitamin B-12] DULoxetine HCL [Cymbalta] 60 mg PO QAM 11/02/21 04/30/22 Estradiol Cream [Estrace Cream 1 gm VAGINAL WESA 11/02/21 04/30/22 0.01%] Gabapentin [Neurontin] 100 mg PO HS 11/02/21 04/30/22 HYDROcodone/APAP 5-325MG [[place] 1 tab PO Q6HR PRN 11/02/21 04/30/22 5-325] Melatonin 6 mg PO HS 11/02/21 04/30/22 Omeprazole [PriLOSEC] 20 mg PO HS 11/02/21 04/30/22 Rosuvastatin Calcium [Crestor] 5 mg PO HS 11/02/21 04/30/22 Vit C/E/Zn/Coppr/Lutein/Zeaxan 1 each PO DAILY 11/02/21 04/30/22 [Preservision Areds 2 Softgel] dilTIAZem HCL [Diltiazem HCl 24Hr 240 mg PO QAM 11/02/21 04/30/22 ER] lisinopriL 40 mg PO QAM 11/02/21 04/30/22 Aspirin [Adult Low Dose Aspirin EC] 81 mg PO BID 04/27/22 04/30/22 Docusate [Colace] 100 mg PO HS 04/27/22 04/30/22 Allergies Allergy/AdvReac Type Severity Reaction Status Date / Time doxycycline [From Vibramycin] Allergy Unknown Verified 05/02/22 18:09 fluticasone Allergy Unknown Verified 05/02/22 18:09 Penicillins Allergy Unknown Verified 05/02/22 18:09 salmeterol Allergy Unknown Verified 05/02/22 18:09 [From Advair Diskus] Review of Systems ROS Statement: Those systems with pertinent positive or pertinent negative responses have been documented in the HPI. ROS Other: All systems not noted in ROS Statement are negative. Past Medical History Past Medical History: Asthma, Cancer, GERD/Reflux, Hypertension, Osteoarthritis (OA) Additional Past Medical History / Comment(s): having left thigh numbness and feels like leg will give out at times, uses walker w/ wheels and seat,SOB with excertion, skin cancer upper lip and cheeck History of Any Multi-Drug Resistant Organisms: None Reported Past Surgical History: Joint Replacement Additional Past Surgical History / Comment(s): surgery for prolapsed uterus,total left hip. RIGHT HIP REPLACEMNT Past Anesthesia/Blood Transfusion Reactions: No Reported Reaction Additional Past Anesthesia/Blood Transfusion Reaction / Comment(s): no hx blood transfusion Past Psychological History: Depression Smoking Status: Never smoker Past Alcohol Use History: Rare Past Drug Use History: None Reported - Past Family History Son(s) Family Medical History: Cancer Additional Family Medical History / Comment(s): melanoma Sister(s) Family Medical History: Congestive Heart Failure (CHF) Brother(s) Family Medical History: Congestive Heart Failure (CHF) General Exam Limitations: no limitations General appearance: alert, in no apparent distress Head exam: Present: atraumatic, normocephalic, normal inspection Eye exam: Present: normal appearance, PERRL, EOMI. Absent: scleral icterus, conjunctival injection, periorbital swelling Neck exam: Present: normal inspection Respiratory exam: Present: normal lung sounds bilaterally. Absent: respiratory distress, wheezes, rales, rhonchi, stridor Cardiovascular Exam: Present: regular rate, normal rhythm, normal heart sounds. Absent: systolic murmur, diastolic murmur, rubs, gallop, clicks Extremities exam: Present: normal inspection Neurological exam: Present: alert, oriented X3, CN II-XII intact, abnormal gait (Antalgic gait) Psychiatric exam: Present: normal affect, normal mood Skin exam: Present: warm, dry, intact, normal color. Absent: rash Course Vital Signs 05/02/22 18:04 Temperature 97.6 F Pulse Rate 69 Respiratory 16 Rate Blood Pressure 110/52 O2 Sat by Pulse 98 Oximetry Medical Decision Making - Medical Decision Making Patient is an 87-year-old female presenting with chief complaint of right hip pain. Patient had total hip replacement on Saturday, she fell at home today onto the hip. She has had extreme difficulty with ambulating and cannot walk short distances without much assistance. CT of the brain and cervical spine shows no acute intracranial process or cervical spine fracture. X-ray shows no acute fracture or dislocation. Attempted to ambulate the patient, she had great difficulty and was unable to safely ambulate. I spoke with [facility] J[facility] who agreed to accept the patient for admission for pain management and placement into rehab. Medical consultation has been placed. Patient and daughter are agreeable with this plan. I discussed this case with my attending Dr. Wyatt. Disposition Clinical Impression: Hip pain, Difficulty in walking Disposition: ADMITTED IP TO THIS [facility] Condition: Good Time of Disposition: 23:22
--- NOTE | 2022-05-02 21:50 | XR ---
EXAMINATION TYPE: XR Hip RT and AP Pelvis DATE OF EXAM: 05/02/2022 9:39 PM INDICATION: Patient age:Female; 87 years old; Reason for study: fall; COMPARISON: None. TECHNIQUE: The right hip was examined in the frontal and lateral projections and a AP pelvis. FINDINGS: Bilateral hip arthroplasty changes. Hardware appears intact. No evidence for acute process, joint dislocation or significant soft tissue swelling. Atherosclerosis of the arterial vasculature. Multilevel disc degeneration changes of the spine. IMPRESSION: 1. No acute process. 2. Bilateral hip arthroplasties with hardware in place.
[2022-05-02] MEDS ORDERED: HYDROcodone/APAP 7.5-325MG 1 EACH TAB PO ONE (22:08)
--- NOTE | 2022-05-02 22:28 | CT ---
EXAMINATION TYPE: CT brain tammie lovelace con DATE OF EXAM: 05/02/2022 COMPARISON: None HISTORY: fall CT DLP: 1449.8 mGycm Automated exposure control for dose reduction was used. Images of the brain and cervical spine obtained without contrast. There is diffuse cerebral cortical atrophy. There is patchy hypodensity in the periventricular white matter. There is no mass effect nor midline shift. No sign of intracranial hemorrhage. The calvarium is intact. There is normal aeration of the mastoid sinuses. The cervical vertebra show disc space narrowing at C5-6 and C6-7 with spur formation. There is a mild subluxation at C4-5. There is hypertrophic multilevel cervical facet arthropathy. No compression fra cture. IMPRESSION: Cerebral atrophy and chronic small vessel ischemia. No acute intracranial abnormality. Spondylotic changes in the cervical spine. Degenerative mild subluxation at C4-5. No cervical spine f racture.
[2022-05-02] MEDS ORDERED: NALOXONE 0.4 MG/ML 1 ML VIAL IV PRN (23:19)
[2022-05-02] MEDS ORDERED: HYDROcodone/APAP 5-325MG 1 EACH TAB PO PRN (23:19)
[2022-05-02] MEDS ORDERED: MORPHINE SULFATE 4 MG/ML SYRINGE IV PRN (23:19)
[2022-05-03 06:48] LABS: Basophils % (A) 0 %; Eosinophils % (A) 0 %; HCT 26.6 % (34.0-46.0); HGB 8.5 gm/dL (11.4-16.0); Hypochromasia Slight; Lymphocytes # (A) 1.7 k/uL (1.0-4.8); Lymphocytes % (A) 18 %; MCH 30.6 pg (25.0-35.0); MCV 95.9 fL (80.0-100.0); Mean Platelet Volume 10.3; Monocytes # (A) 0.6 k/uL (0-1.0); Monocytes % (A) 7 %; Neutrophils # (A) 6.5 k/uL (1.3-7.7); Neutrophils % (A) 72 %; Platelet Count 154 k/uL (150-450); RBC 2.77 m/uL (3.80-5.40); RDW 13.2 % (11.5-15.5)
[2022-05-03 07:02] LABS: Albumin 2.9 g/dL (3.5-5.0); Calcium 7.8 mg/dL (8.4-10.2); Potassium 4.2 mmol/L (3.5-5.1); Total Bilirubin 0.5 mg/dL (0.2-1.3); Total Protein 5.1 g/dL (6.3-8.2)
[2022-05-03] MEDS ORDERED: ACETAMINOPHEN TAB 325 MG TAB PO PRN ×2 (07:57→20:30)
--- NOTE | 2022-05-03 08:08 | P.HPOR ---
History of Present Illness H&P Date: 05/03/22 Chief Complaint: e difficulty with ADLs, recent fall, recent total hip arthr oplasty Patient is an 87-year-old female who presented to [facility] yesterday evening with regards to difficulty with ambulation and ADLs. Patient recently underwent a total hip arthroplasty on 04/30/[address] Hightower. Patient did have a fall on 05/02/2022, I was able to evaluate the patient in the outpatient setting, there are no acute changes noted to the right hip. An attempt was made to have the patient transferred from the assisted living side of her facility to the rehab side, this was not able to happen. Patient reported back to the hospital for likely admission with placement to subacute rehab. Patient was evaluated today at bedside, she was resting in her hospital bed. Nursing did contact me earlier regarding the patient, she was having some chest discomfort. An EKG was ordered, no acute changes were noted. Internal medicine has been consulted for this patient. She is resting comfortably, she has no acute complaints with regards to the right or left hip at this time. She states should she does feel pretty congested and her chest and is wheezing a little bit. She denies any current chest pain. She denies any worsening pain of the bilateral lower extremities when resting. She denies any numbness or tingling of the bilateral lower extremity is. She denies any acute bowel or bladder changes. She denies any pain in the upper extremities, cervical, thoracic or lumbar spine. Review of Systems Constitutional: Reports as per HPI Past Medical History Past Medical History: Asthma, Cancer, GERD/Reflux, Hypertension, Osteoarthritis (OA) Additional Past Medical History / Comment(s): having left thigh numbness and feels like leg will give out at times, uses walker w/ wheels and seat,SOB with excertion, skin cancer upper lip and cheeck History of Any Multi-Drug Resistant Organisms: None Reported Past Surgical History: Joint Replacement Additional Past Surgical History / Comment(s): surgery for prolapsed uterus,total left hip. RIGHT HIP REPLACEMNT Past Anesthesia/Blood Transfusion Reactions: No Reported Reaction Additional Past Anesthesia/Blood Transfusion Reaction / Comment(s): no hx blood transfusion Past Psychological History: Depression Smoking Status: Never smoker Past Alcohol Use History: Rare Past Drug Use History: None Reported - Past Family History Son(s) Family Medical History: Cancer Additional Family Medical History / Comment(s): melanoma Sister(s) Family Medical History: Congestive Heart Failure (CHF) Brother(s) Family Medical History: Congestive Heart Failure (CHF) Medications and Allergies Home Medications Medication Instructions Recorded Confirmed Type Acetaminophen Tab [Tylenol] 650 mg PO Q6H PRN 11/02/21 04/30/22 History Biotene Mouth Wash 5 ml PO DAILY PRN 11/02/21 04/30/22 History Calcium Carbonate [Tums] 500 mg PO Q6HR PRN 11/02/21 04/30/22 History Cholecalciferol [Vitamin D3 (25 50 mcg PO DAILY 11/02/21 04/30/22 History Mcg = 1000 Iu)] Cyanocobalamin (Vitamin B-12) 1,000 mcg PO DAILY 11/02/21 04/30/22 History [Vitamin B-12] DULoxetine HCL [Cymbalta] 60 mg PO QAM 11/02/21 04/30/22 History Estradiol Cream [Estrace Cream 1 gm VAGINAL WESA 11/02/21 04/30/22 History 0.01%] Gabapentin [Neurontin] 100 mg PO HS 11/02/21 04/30/22 History HYDROcodone/APAP 5-325MG [[place] 1 tab PO Q6HR PRN 11/02/21 04/30/22 History 5-325] Melatonin 6 mg PO HS 11/02/21 04/30/22 History Omeprazole [PriLOSEC] 20 mg PO HS 11/02/21 04/30/22 History Rosuvastatin Calcium [Crestor] 5 mg PO HS 11/02/21 04/30/22 History Vit C/E/Zn/Coppr/Lutein/Zeaxan 1 each PO DAILY 11/02/21 04/30/22 History [Preservision Areds 2 Softgel] dilTIAZem HCL [Diltiazem HCl 24Hr 240 mg PO QAM 11/02/21 04/30/22 History ER] lisinopriL 40 mg PO QAM 11/02/21 04/30/22 History Aspirin [Adult Low Dose Aspirin EC] 81 mg PO BID 04/27/22 04/30/22 History Docusate [Colace] 100 mg PO HS 04/27/22 04/30/22 History Allergies Allergy/AdvReac Type Severity Reaction Status Date / Time doxycycline [From Vibramycin] Allergy Unknown Verified 05/02/22 18:09 fluticasone Allergy Unknown Verified 05/02/22 18:09 Penicillins Allergy Unknown Verified 05/02/22 18:09 salmeterol Allergy Unknown Verified 05/02/22 18:09 [From Advair Diskus] Physical Examination Right lower extremity: Postoperative bandages in good position and condition, there is no obvious drainage or surrounding erythema. There is some mild soft tissue swelling in the proximal thigh Passive range of motion, this to include hip flexion, knee extension knee flexion reproduces minimal discomfort. Active motion is intact, she does have limitations due to the recent surgery and pain. Plantar flexion, dorsiflexion, EHL, FHL is intact Logroll maneuver of the extremity reproduces no pain. She has no acute tenderness with palpation to the proximal femur, knee, lower leg. Calf is soft, no tenderness with palpation Sensory exam to light touch is intact throughout the extremity, dorsalis pedis p ulses 2+ General orthopedic exam: No point tenderness appreciated in the bilateral upper extremities, full range of motion in all major muscle groups of the bilateral upper extremities with no focal deficits No point tenderness is appreciated throughout the paraspinal course benign region of the cervical, thoracic and lumbar spine Range of motion is intact in the left lower extremity, no point tenderness is appreciated on exam. Her neurovascular exam is intact of the left lower extremity Results - Labs Labs: Abnormal Lab Results - Last 24 Hours (Table) 05/03/22 05/03/22 Range/Units 06:26 06:26 RBC 2.77 L (3.80-5.40) m/uL Hgb 8.5 L (11.4-16.0) gm/dL Hct 26.6 L (34.0-46.0) % Sodium 135 L (137-145) mmol/L BUN 46 H (7-17) mg/dL Creatinine 1.74 H (0.52-1.04) mg/dL Glucose 102 H (74-99) mg/dL Calcium 7.8 L (8.4-10.2) mg/dL Total Protein 5.1 L (6.3-8.2) g/dL Albumin 2.9 L (3.5-5.0) g/dL H & H 05/03/22 Range/Units 06:26 Hgb 8.5 L (11.4-16.0) gm/dL Hct 26.6 L (34.0-46.0) % Result Diagrams: 05/03/22 06:26 05/03/22 06:26 - Diagnostic results Hip x-ray: report reviewed, image reviewed (Pelvis along with 2 view right hip reviewed along with report. No acute fractures or dislocations. Components in the right hip appear stable, no obvious lucencies or other signs of loosening.) Assessment and Plan Assessment: Inability to ambulate/difficulty with ADLs Recent right direct anterior total hip arthroplasty, stable History of recent fall Postoperative anemia, expected surgical outcome Other medical comorbidities Plan: I was able to discuss the case, this including both physical exam findings and imaging studies my attending Dr. Hightower. No orthopedic surgical intervention recommended at this time Discussed with patient that we will likely keep the patient in the hospital through the weekend for further evaluation. Plan will be for subacute rehab at discharge Consult to social work/case management for placement PT/OT evaluation Recommend weight-bear as tolerated, utilize walker at all times Encourage incentive spirometer Pain control, low dose pain medication DVT prophylaxis, utilizing Lovenox 40 mg subcu daily while in hospital Dressing instructions, Brendan foam dressing in place at this time Internal medicine recommendations Further recommendations follow Time with Patient: Less than 30
[2022-05-03] MEDS: FERROUS SULFATE 325 MG TAB PO SCH ×2 (08:47→17:44)
[2022-05-03] MEDS ORDERED: ENOXAPARIN 40 MG/0.4 ML SYRINGE SQ SCH (09:00)
[2022-05-03] MEDS ORDERED: CALCIUM CARBONATE 500 MG CHEWABLE PO PRN (20:30)
[2022-05-03] MEDS: ATORVASTATIN 10 MG TAB PO SCH (21:44)
[2022-05-03] MEDS: GABAPENTIN 100 MG CAP PO SCH (21:44)
[2022-05-03] MEDS: DOCUSATE 100 MG CAP PO PRN (21:44)
[2022-05-03] MEDS: PANTOPRAZOLE 40 MG TABLET PO SCH (21:45)
[2022-05-03] MEDS: MELATONIN 3 MG TABLET PO SCH (21:45)
[2022-05-04] MEDS: VIT A,C & E-LUTEIN-MINERALS 1 EACH TAB PO SCH (09:55)
[2022-05-04] MEDS: CYANOCOBALAMIN 500 MCG TAB PO SCH (09:55)
[2022-05-04] MEDS: FERROUS SULFATE 325 MG TAB PO SCH ×2 (09:55→17:52)
[2022-05-04] MEDS: DULoxetine HCL 60 MG CAPSULE.DR PO SCH (09:55)
[2022-05-04] MEDS: lisinopriL 20 MG TAB PO SCH (09:55)
[2022-05-04] MEDS: DILTIAZEM CD 240 MG CAP.ER.24H PO SCH (09:55)
[2022-05-04] MEDS: CHOLECALCIFEROL 25 MCG (1000 IU) TABLET PO SCH (09:55)
[2022-05-04] MEDS: ENOXAPARIN 30 MG/0.3 ML SYRINGE SQ SCH (10:40)
--- NOTE | 2022-05-04 15:28 | P.PN ---
Subjective Progress Note Date: 05/04/22 Principal diagnosis: Inability to ambulate/difficulty with ADLs - History of recent right total hip arthroplasty Patient was seen at bedside this morning resting comfortably lying semirecumbent position. Patient says she has been up using a walker with therapy, however, patient says her right lower extremity is still feeling weak at this time. Patient says she is able to bear weight on the right lower extremity, however, patient notes that she does have pain to the right hip during this. Patient denies chest pain, fever, shortness breath, nausea, vomiting, change in vision, loss of bowel/bladder control. Objective - Vital Signs Vital signs: Vital Signs Temp 97.4 F L 05/04/22 07:35 Pulse 83 05/04/22 07:35 Resp 18 05/04/22 07:35 BP 137/57 05/04/22 07:35 Pulse Ox 99 05/04/22 07:35 FiO2 Intake & Output 05/03/22 05/04/22 05/04/22 18:59 06:59 18:59 Intake Total 500 Balance 500 Weight 68.039 kg Intake: Oral 500 Other: Voiding Method Bedside Commode Toilet Diaper # Voids 1 - Exam Negative for any open fractures, ulcers, significant ecchymosis/erythema. Incision is present over the right anterior hip. Silver foam dressing is in place this time. Incision appears to be healing well at this time. Negative for any fluctuance/periods. There is some mild tenderness to palpation over the right hip anteriorly. Sensation is equal, symmetric, bilaterally intact throughout the exam. Patient does have similar range of motion right hip flexion/extension due to weakness. Patient has full range of motion bilateral upper and lower extremities throughout rest of exam. 4-/5 in resisted right hip flexion/extension. 4+/5 in all other major motor groups. Neurovascular status is intact bilaterally. Radial pulses intact, 2+. Dorsalis pedis pulses palpable bilaterally. Negative Homans bilaterally. - Labs CBC & Chem 7: 05/03/22 06:26 05/03/22 06:26 Assessment and Plan Assessment: Inability to ambulate/difficulty with ADLs - History of recent right total hip arthroplasty Plan: 1. Inability to ambulate/difficulty with ADLs; History of recent right total hip arthroplasty - patient sterile bedside this morning. Continue therapy daily strengthening exercises of right hip. Plan for discharge tomorrow to rehab. Pain medication as needed 2. Appreciate medical management 3. Pain management - Paul; Tylenol; gabapentin 4. GI prophylaxis - Tums; Protonix 5. DVT prophylaxis - Lovenox 6. PT/OT - weightbearing as tolerated with walker 7. Encourage incentive spirometer use 8. Discharge planning - plan for discharge to rehab tomorrow Time with Patient: Less than 30
[2022-05-04] MEDS: DOCUSATE 100 MG CAP PO PRN (17:55)
[2022-05-04] MEDS: MELATONIN 3 MG TABLET PO SCH (19:40)
[2022-05-04] MEDS: PANTOPRAZOLE 40 MG TABLET PO SCH (19:40)
[2022-05-04] MEDS: ATORVASTATIN 10 MG TAB PO SCH (19:40)
[2022-05-04] MEDS: GABAPENTIN 100 MG CAP PO SCH (19:40)
--- NOTE | 2022-05-04 22:47 | CONS ---
CONSULTATION HISTORY OF PRESENT ILLNESS: An 87-year-old white female. She fell at home getting out of bed on her right lower extremity, which she just had her hip replaced. She does not think she hurt her hip or her left side, but she is dizzy when she ambulates. I have to check her for orthostatic hypotension. PHYSICAL EXAMINATION: VITAL SIGNS: Temperature 97.4, pulse 83, respiratory rate 16 to 18, blood pressure 137/57, O2 of 99%. CARDIOVASCULAR: S1, S2. HEMATOLOGY: Negative Homans. PSYCH: Fair mood and affect. Giving appropriate answers. HEMATOLOGIC: Negative Homans. MUSCULOSKELETAL: No fractures, ulcers, or significant bruising, or erythema over the right or left hip. ASSESSMENT: Inability to ambulate, status post hip replacement on the right hip. We will check her for orthostatic hypotension, gait training. Possible discharge home or to rehab. Home medications have been restarted. Prognosis is guarded. Home medications reviewed. Family history reviewed. Surgical history reviewed. Please see further orders. MMODL / IJN: [id number] /
[2022-05-04] MEDS: HYDROcodone/APAP 5-325MG 1 EACH TAB PO PRN (23:31)
[2022-05-05] MEDS: lisinopriL 20 MG TAB PO SCH (08:04)
[2022-05-05] MEDS: FERROUS SULFATE 325 MG TAB PO SCH ×2 (08:04→17:17)
[2022-05-05] MEDS: CHOLECALCIFEROL 25 MCG (1000 IU) TABLET PO SCH (08:04)
[2022-05-05] MEDS: DULoxetine HCL 60 MG CAPSULE.DR PO SCH (08:04)
[2022-05-05] MEDS: CYANOCOBALAMIN 500 MCG TAB PO SCH (08:04)
[2022-05-05] MEDS: DILTIAZEM CD 240 MG CAP.ER.24H PO SCH (08:04)
[2022-05-05] MEDS: ENOXAPARIN 30 MG/0.3 ML SYRINGE SQ SCH (08:05)
[2022-05-05] MEDS: VIT A,C & E-LUTEIN-MINERALS 1 EACH TAB PO SCH (08:05)
--- NOTE | 2022-05-05 08:35 | P.PN ---
Subjective Progress Note Date: 05/05/22 Principal diagnosis: Status post right total hip arthroplasty, difficulty with ambulation/recent fall Patient elevated at bedside, she is resting comfortably. She has no acute pain involving the right lower extremity. She states that she is feeling a little bit better and more steady on her feet. She's had no acute events during her hospital stay. Discussed with case management yesterday, she is approved for subacute rehab. Internal medicine has also evaluated the patient Objective - Vital Signs Vital signs: Vital Signs Temp 97.8 F 05/05/22 07:30 Pulse 63 05/05/22 07:30 Resp 18 05/05/22 07:30 BP 135/75 05/05/22 07:30 Pulse Ox 97 05/05/22 07:30 FiO2 Intake & Output 05/04/22 05/05/22 05/05/22 18:59 06:59 18:59 Intake Total 476 250 Balance 476 250 Intake: Oral 476 250 Other: Voiding Method Toilet Diaper # Voids 2 3 - Exam Right lower extremity: Incision is clean, dry, and intact. The foam dressing is in good condition. There is minimal soft tissue swelling and ecchymosis surrounding the medial and lateral aspects of the incision. Calf is soft, no tenderness with palpation. Plantar flexion, dorsiflexion, EHL, FHL are intact. Sensory exam to light touch throughout the extremity is intact, dorsal pedis pulses 2+. - Labs CBC & Chem 7: 05/03/22 06:26 05/03/22 06:26 Assessment and Plan Assessment: Inability to ambulate/difficulty with ADLs Recent right direct anterior total hip arthroplasty, stable History of recent fall Postoperative anemia, expected surgical outcome Other medical comorbidities Plan: Patient has continued to progress, she is appropriate for subacute rehab Recommend weight-bear as tolerated, utilize walker at all times Encourage incentive spirometer Pain control, low dose pain medication DVT prophylaxis, aspirin 81 mg twice a day for 1 month Dressing instructions, Brendan foam dressing in place at this time Internal medicine recommendations Plan for discharge home today Time with Patient: Less than 30
[2022-05-05] MEDS: PANTOPRAZOLE 40 MG TABLET PO SCH (19:21)
[2022-05-05] MEDS: GABAPENTIN 100 MG CAP PO SCH (19:21)
[2022-05-05] MEDS: ATORVASTATIN 10 MG TAB PO SCH (19:21)
[2022-05-05] MEDS: MELATONIN 3 MG TABLET PO SCH (19:21)
[2022-05-06] MEDS: HYDROcodone/APAP 5-325MG 1 EACH TAB PO PRN ×2 (02:42→14:39)
[2022-05-06] MEDS: DULoxetine HCL 60 MG CAPSULE.DR PO SCH (08:57)
[2022-05-06] MEDS: DILTIAZEM CD 240 MG CAP.ER.24H PO SCH (08:57)
[2022-05-06] MEDS: lisinopriL 20 MG TAB PO SCH (08:57)
[2022-05-06] MEDS: ENOXAPARIN 30 MG/0.3 ML SYRINGE SQ SCH (08:57)
[2022-05-06] MEDS: CHOLECALCIFEROL 25 MCG (1000 IU) TABLET PO SCH (08:57)
[2022-05-06] MEDS: FERROUS SULFATE 325 MG TAB PO SCH ×2 (08:58→17:25)
[2022-05-06] MEDS: CYANOCOBALAMIN 500 MCG TAB PO SCH (08:58)
[2022-05-06] MEDS: VIT A,C & E-LUTEIN-MINERALS 1 EACH TAB PO SCH (08:58)
[2022-05-06 09:57] LABS: Basophils # (A) 0.04 X 10*3/uL (0.00-0.10); Basophils % (A) 0.6 %; Eosinophils # (A) 0.28 X 10*3/uL (0.04-0.35); Eosinophils % (A) 4.2 %; HCT 25.1 % (37.2-46.3); HGB 7.9 g/dL (12.0-15.0); Immature Grans, Automated 0.3 %; Lymphocytes # (A) 1.78 X 10*3/uL (0.90-5.00); Lymphocytes % (A) 26.4 %; MCH 30.6 pg (27.0-32.0); MCHC 31.5 g/dL (32.0-37.0); MCV 97.3 fL (80.0-97.0); Mean Platelet Volume 11.1 fL (9.5-12.2); Monocytes # (A) 0.78 X 10*3/uL (0.20-1.00); Monocytes % (A) 11.6 %; NRBC Per 100 WBC 0 /100 WBCS (0.0-0.0); Neutrophils # (A) 3.84 X 10*3/uL (1.80-7.70); Neutrophils % (A) 56.9 %; Platelet Count 222 X 10*3/uL (140-440); RBC 2.58 X 10*6/uL (4.10-5.20); RDW 13.9 % (11.5-14.5); WBC 6.74 X 10*3/uL (4.50-10.00)
[2022-05-06 10:27] LABS: African American GFR (CKD) 66.2 (60.0-200.0); Albumin/Globulin Ratio 1.5 (1.60-3.17); Anion Gap 6.9 mmol/L (10.00-18.00); BUN/Creat Ratio 24.22 Ratio (12.00-20.00); Blood Urea Nitrogen 21.8 mg/dL (9.0-27.0); Calcium 8.1 mg/dL (8.7-10.3); Carbon Dioxide 29.1 mmol/L (20.0-27.5); Non-African American GFR(CKD) 57.1 (60.0-200.0); Potassium 4.3 mmol/L (3.5-5.5); Total Bilirubin 0.6 mg/dL (0.30-1.20)
--- NOTE | 2022-05-06 13:31 | P.PN ---
Subjective Progress Note Date: 05/06/22 Principal diagnosis: Status post right total hip arthroplasty, difficulty with ambulation/recent fall Patient was evaluated at bedside, there was additional bed availability at rehab so she was not discharge. She remained stable with no new complaints. She feels she is improving with her steadiness along with strengthening in the lower extremities. Objective - Vital Signs Vital signs: Vital Signs Temp 97.8 F 05/06/22 07:40 Pulse 68 05/06/22 07:40 Resp 18 05/06/22 07:40 BP 152/73 05/06/22 07:40 Pulse Ox 95 05/06/22 07:40 FiO2 Intake & Output 05/05/22 05/06/22 05/06/22 18:59 06:59 18:59 Intake Total 236 750 240 Balance 236 750 240 Intake: Oral 236 750 240 Other: Voiding Method Toilet Toilet Diaper Diaper # Voids 1 - Exam Right lower extremity: Incision is clean, dry, and intact. The foam dressing is in good condition. There is minimal soft tissue swelling and ecchymosis surrounding the medial and lateral aspects of the incision. Calf is soft, no tenderness with palpation. Plantar flexion, dorsiflexion, EHL, FHL are intact. Sensory exam to light touch throughout the extremity is intact, dorsal pedis pulses 2+. - Labs CBC & Chem 7: 05/06/22 05:34 05/06/22 05:34 Labs: Abnormal Lab Results - Last 24 Hours (Table) 05/06/22 05/06/22 Range/Units 05:34 05:34 RBC 2.58 L (4.10-5.20) X 10*6/uL Hgb 7.9 L (12.0-15.0) g/dL Hct 25.1 L (37.2-46.3) % MCV 97.3 H (80.0-97.0) fL MCHC 31.5 L (32.0-37.0) g/dL Carbon Dioxide 29.1 H (20.0-27.5) mmol/L Anion Gap 6.90 L (10.00-18.00) mmol/L Est GFR (CKD-EPI)NonAf 57.1 L (60.0-200.0) BUN/Creatinine Ratio 24.22 H (12.00-20.00) Ratio Calcium 8.1 L (8.7-10.3) mg/dL Total Protein 5.0 L (6.2-8.2) g/dL Albumin 3.0 L (3.8-4.9) g/dL Albumin/Globulin Ratio 1.50 L (1.60-3.17) g/dL Assessment and Plan Assessment: Inability to ambulate/difficulty with ADLs Recent right direct anterior total hip arthroplasty, stable History of recent fall Postoperative anemia, expected surgical outcome Other medical comorbidities Plan: Recommend weight-bear as tolerated, utilize walker at all times Encourage incentive spirometer Pain control, low dose pain medication DVT prophylaxis, aspirin 81 mg twice a day for 1 month Dressing instructions, Brendan foam dressing in place at this time Internal medicine recommendations Plan for discharge to rehab tomorrow Time with Patient: Less than 30
--- NOTE | 2022-05-06 18:58 | PN ---
PROGRESS NOTE DATE OF SERVICE: 05/05/2022 SUBJECTIVE: This 87-year-old woman, who was admitted with significant pain in the right hip, is closely monitored at this time. The PT/OT is evaluating the patient for possible ECF rehab also. Orthopedic Surgery has determined that the hip arthroplasty is stable at this time. No chest pain. No palpitation. OBJECTIVE: VITAL SIGNS: Pulse is 78, blood pressure 101/68, respirations 18. CHEST: Clear to auscultation. CARDIOVASCULAR: S1, S2. ABDOMEN: Soft. NERVOUS SYSTEM: Diffusely weak. LABORATORY DATA: Creatinine 1.74. The rest of labs are noted. ASSESSMENT: 1. Generalized weakness. 2. Right total hip arthroplasty recently. 3. History of recent fall. 4. Gait dysfunction. 5. Multiple medical issues. RECOMMENDATIONS AND DISCUSSION: In this 87-year-old woman, who presented with multiple complex medical issues, we will monitor the patient closely. Continue symptomatic treatment. DVT prophylaxis. Otherwise, pain management. PT/OT evaluation, possible ECF rehab. Further recommendations to follow. MMODL / IJN: [id number] /
[2022-05-06] MEDS: ATORVASTATIN 10 MG TAB PO SCH (20:22)
[2022-05-06] MEDS: GABAPENTIN 100 MG CAP PO SCH (20:23)
[2022-05-06] MEDS: MELATONIN 3 MG TABLET PO SCH (20:23)
[2022-05-06] MEDS: PANTOPRAZOLE 40 MG TABLET PO SCH (20:23)
--- NOTE | 2022-05-07 03:55 | PN ---
PROGRESS NOTE DATE OF SERVICE: 05/06/2022 This 87-year-old woman, who was admitted with hip pain, had a recent surgery. No chest pain. No palpitations. No fever. PHYSICAL EXAMINATION: VITAL SIGNS: Pulse is 74, blood pressure 130/70, respirations 18. CHEST: Clear to auscultation. CARDIOVASCULAR: S1, S2. ABDOMEN: Soft. NERVOUS SYSTEM: No focal deficits. LABORATORIES: Reviewed. ASSESSMENT: 1. Status post fall and hip pain. 2. History of recent hip surgery. 3. Asthma. 4. Hypertension. 5. Multiple medical issues. RECOMMENDATIONS: I recommend to continue current medications and symptomatic treatment. Closely follow with Orthopedic Surgery. Further recommendations to follow. MMODL / IJN: [id number] /
[2022-05-07] MEDS: FERROUS SULFATE 325 MG TAB PO SCH (05:52)
[2022-05-07] MEDS: lisinopriL 20 MG TAB PO SCH (08:17)
[2022-05-07] MEDS: VIT A,C & E-LUTEIN-MINERALS 1 EACH TAB PO SCH (08:17)
[2022-05-07] MEDS: DULoxetine HCL 60 MG CAPSULE.DR PO SCH (08:18)
[2022-05-07] MEDS: ENOXAPARIN 30 MG/0.3 ML SYRINGE SQ SCH (08:19)
[2022-05-07] MEDS: CYANOCOBALAMIN 500 MCG TAB PO SCH (08:19)
[2022-05-07] MEDS: DILTIAZEM CD 240 MG CAP.ER.24H PO SCH (08:19)
[2022-05-07] MEDS: CHOLECALCIFEROL 25 MCG (1000 IU) TABLET PO SCH (08:19)
[2022-05-07 08:42] VITALS: BP 137/67; PULSE 78; RESP 18; TEMP 98.5
--- NOTE | 2022-05-07 11:06 | P.PN ---
Subjective Progress Note Date: 05/07/22 Principal diagnosis: Status post right total hip arthroplasty, difficulty with ambulation/recent fall Patient was evaluated at bedside, she is doing very well today. She remained stable with no new complaints. She feels she is improving with her steadiness along with strengthening in the lower extremities. Objective - Vital Signs Vital signs: Vital Signs Temp 98.5 F 05/07/22 07:00 Pulse 78 05/07/22 07:00 Resp 18 05/07/22 08:19 BP 137/67 05/07/22 07:00 Pulse Ox 94 L 05/07/22 07:00 FiO2 Intake & Output 05/06/22 05/07/22 05/07/22 18:59 06:59 18:59 Intake Total 358 Balance 358 Intake: Oral 358 Other: Voiding Method Toilet Toilet Diaper Diaper # Voids 2 2 # Bowel Movements 1 1 - Exam Right lower extremity: Incision is clean, dry, and intact. The foam dressing is in good condition. There is minimal soft tissue swelling and ecchymosis surrounding the medial and lateral aspects of the incision. Calf is soft, no tenderness with palpation. Plantar flexion, dorsiflexion, EHL, FHL are intact. Sensory exam to light touch throughout the extremity is intact, dorsal pedis pulses 2+. - Labs CBC & Chem 7: 05/06/22 05:34 05/06/22 05:34 Assessment and Plan Assessment: Inability to ambulate/difficulty with ADLs Recent right direct anterior total hip arthroplasty, stable History of recent fall Postoperative anemia, expected surgical outcome Other medical comorbidities Plan: Recommend weight-bear as tolerated, utilize walker at all times Encourage incentive spirometer Pain control, low dose pain medication DVT prophylaxis, aspirin 81 mg twice a day for 1 month Dressing instructions, Brendan foam dressing in place at this time Internal medicine recommendations Plan for discharge to rehab Time with Patient: Less than 30
--- NOTE | 2022-05-07 11:07 | P.DS ---
Providers Date of admission: 05/02/22 23:49 Expected date of discharge: 05/07/22 Attending physician: Kerwin Hightower Consults: 05/02/22 23:19 Consult Physician Urgent Consulting Provider: Checo Ospina Reason/Comments: medicine consult Do you want consulting provider notified?: Yes Primary care physician: Joey Orantes Hospital Course: Date of admission: 05/02/2022 Date of discharge: 05/07/2022 Admission diagnosis: Recent right total hip arthroplasty, difficulty with ambulation and ADLs Discharge diagnosis: Same Attending physician: Dr. Hightower Surgical procedures: None Brief history: Patient is a 87-year-old female who had undergone surgery earlier this week for right total hip arthroplasty. Patient did attempt to go home, it was very difficult with ADLs she did have a fall. She presented back to the hospital and was admitted for placement for subacute rehab. Hospital course: Patient did very well during her hospital stay, she did work with physical therapy. She was restarted on home medications. There were no acute events. Patient was set up for rehab. Discharge condition/disposition: Patient will be discharged to rehab in stable condition. Discharge medications: Instructions are given on resumption of patient's normal daily medications per primary care recommendation, in addition patient will be prescribed [place] 5 mg/325 mg, aspirin 81 mg. Discharge instructions: 1. Wound care and infection precautions, keep incision dry and covered while showering no lotions, creams, moisturizers. No soaking, tubs, pools, hottubs. Do not scrub over the incision. 2. Weight-bear with walker / cane until follow-up. 3. Ice and elevate when necessary. Do not exceed 20 minutes per hour with ice pack. 4. Utilize compression sleeve until seen at first follow up appointment. 5. Visiting nursing care. 6. Home physical therapy 7. Pain meds and anticoagulants per prescription. 8. Pain medication has potential to cause constipation. Increase oral fluid and fiber intake. Contact primary care provider if you have not had a bowel movement within 48 hours after discharge 9. No anti-inflammatory medication until discussed at first post operative visit, this including Motrin, Aleve, Mobic, Diclofenac 10. Follow up in office at 2 weeks postop with Aaron Jain PA-C/Ag Aguilar 11. Follow up with your primary care doctor 7-10 days after discharge. 12. Contact [facility] with any questions, . Procedures: Direct anterior right total hip arthroplasty Patient Condition at Discharge: Good Plan - Discharge Summary New Discharge Prescriptions: New Gabapentin [Neurontin] 100 mg PO HS #12 cap HYDROcodone/APAP 5-325MG [[place] 5-325] 1 tab PO Q6HR PRN #12 tab PRN Reason: Pain No Action Calcium Carbonate [Tums] 500 mg PO Q6HR PRN PRN Reason: Heartburn lisinopriL 40 mg PO QAM Melatonin 6 mg PO HS Estradiol Cream [Estrace Cream 0.01%] 1 gm VAGINAL WESA Biotene Mouth Wash 5 ml PO DAILY PRN PRN Reason: Dry Mouth Aspirin [Adult Low Dose Aspirin EC] 81 mg PO BID Docusate [Colace] 100 mg PO HS Acetaminophen Tab [Tylenol] 650 mg PO Q6H PRN PRN Reason: Pain HYDROcodone/APAP 5-325MG [[place] 5-325] 1 tab PO Q6HR PRN PRN Reason: Pain Cholecalciferol [Vitamin D3 (25 Mcg = 1000 Iu)] 50 mcg PO DAILY Rosuvastatin Calcium [Crestor] 5 mg PO HS Cyanocobalamin (Vitamin B-12) [Vitamin B-12] 1,000 mcg PO DAILY Vit C/E/Zn/Coppr/Lutein/Zeaxan [Preservision Areds 2 Softgel] 1 each PO DAILY Omeprazole [PriLOSEC] 20 mg PO HS Gabapentin [Neurontin] 100 mg PO HS DULoxetine HCL [Cymbalta] 60 mg PO QAM dilTIAZem HCL [Diltiazem HCl 24Hr ER] 240 mg PO QAM Discharge Medication List Acetaminophen Tab [Tylenol] 650 mg PO Q6H PRN 11/02/21 [History] Biotene Mouth Wash 5 ml PO DAILY PRN 11/02/21 [History] Calcium Carbonate [Tums] 500 mg PO Q6HR PRN 11/02/21 [History] Cholecalciferol [Vitamin D3 (25 Mcg = 1000 Iu)] 50 mcg PO DAILY 11/02/21 [History] Cyanocobalamin (Vitamin B-12) [Vitamin B-12] 1,000 mcg PO DAILY 11/02/21 [History] DULoxetine HCL [Cymbalta] 60 mg PO QAM 11/02/21 [History] Estradiol Cream [Estrace Cream 0.01%] 1 gm VAGINAL WESA 11/02/21 [History] Gabapentin [Neurontin] 100 mg PO HS 11/02/21 [History] HYDROcodone/APAP 5-325MG [[place] 5-325] 1 tab PO Q6HR PRN 11/02/21 [History] Melatonin 6 mg PO HS 11/02/21 [History] Omeprazole [PriLOSEC] 20 mg PO HS 11/02/21 [History] Rosuvastatin Calcium [Crestor] 5 mg PO HS 11/02/21 [History] Vit C/E/Zn/Coppr/Lutein/Zeaxan [Preservision Areds 2 Softgel] 1 each PO DAILY 11/02/21 [History] dilTIAZem HCL [Diltiazem HCl 24Hr ER] 240 mg PO QAM 11/02/21 [History] lisinopriL 40 mg PO QAM 11/02/21 [History] Aspirin [Adult Low Dose Aspirin EC] 81 mg PO BID 04/27/22 [History] Docusate [Colace] 100 mg PO HS 04/27/22 [History] Gabapentin [Neurontin] 100 mg PO HS #12 cap 05/05/22 [Rx] HYDROcodone/APAP 5-325MG [[place] 5-325] 1 tab PO Q6HR PRN #12 tab 05/05/22 [Rx] Follow up Appointment(s)/Referral(s): Joey Orantes DO [Primary Care Provider] - 1-2 days Shaun Jain PAC [PHYSICIAN SUPERCALENDER OPERATOR] - 2 Weeks Activity/Diet/Wound Care/Special Instructions: Orthopedic Discharge Instructions: 1. Wound care and infection precautions, keep incision dry and covered while showering, no lotions, creams, moisturizers. No soaking, pools, hot tubs. Do not scrub over incision. 2. Weight-bear as tolerated with walker / cane until follow-up. 3. Ice and elevate when necessary. Do not exceed 20 minutes per hour with ice pack. 4. Utilize compression sleeve until seen at first follow up appointment. 5. Pain meds and anticoagulants per prescription. 6. Pain medication has potential to cause constipation. Increase oral fluid and fiber intake. Contact primary care provider if you have not had a bowel movement within 48 hours after discharge. 7. No anti-inflammatory medication until discussed at first post operative visit, this including Motrin, Aleve, Mobic, Diclofenac. 8. Follow up in office at 2 weeks postop with Aaron Jain PA-C/Ag Dash PA-C 9. Follow up with your primary care doctor 7-10 days after discharge. 10. Contact [facility] with any questions, . Discharge Disposition: TRANSFER TO SNF/ECF
[2022-05-07 13:32] VITALS: BMI 25.7
[2022-05-08] MEDS ORDERED: ENOXAPARIN 40 MG/0.4 ML SYRINGE SQ SCH (09:00)
== END 2022-05-07 14:00 ==
LOC: EC 17:46 → 6NMEDSUR 23:49
PROVIDERS: ADMIT Orthopaedic Surgery; ATTEND Orthopaedic Surgery
DX: M25.551 Pain in right hip (principal); Y92.009 Unspecified place in unspecified non-institutional (private) residence as the place of occurrence of the external cause; W19.XXXA Unspecified fall, initial encounter; R26.2 Difficulty in walking, not elsewhere classified; R53.1 Weakness; R20.0 Anesthesia of skin; K21.9 Gastro-esophageal reflux disease without esophagitis; R07.9 Chest pain, unspecified; R42 Dizziness and giddiness; Z20.822 Contact with and (suspected) exposure to COVID-19; Z96.643 Presence of artificial hip joint, bilateral; J45.909 Unspecified asthma, uncomplicated; I10 Essential (primary) hypertension; M19.90 Unspecified osteoarthritis, unspecified site; D64.9 Anemia, unspecified; Z85.828 Personal history of other malignant neoplasm of skin; Z98.890 Other specified postprocedural states; F32.A Depression, unspecified; Z82.49 Family history of ischemic heart disease and other diseases of the circulatory system; Z80.8 Family history of malignant neoplasm of other organs or systems; Z79.82 Long term (current) use of aspirin; Z79.899 Other long term (current) drug therapy; Z88.1 Allergy status to other antibiotic agents; Z88.0 Allergy status to penicillin; Z88.8 Allergy status to other drugs, medicaments and biological substances
CPT/HCPCS: 96372 ×5; 99285; 97530 ×2; 97162; 97535 ×2; 97166; 80053 ×2; 85025 ×2; 87635 ×2; 73502; 72125; 70450; G0378 ×5; J1650 ×5